=== PATIENT | male | born 1940 | race Caucasian/White ===

== ENCOUNTER → 2016-09-11 | Outpatient (CLI) | payer OTHER ==
[~2016-09-11] MED LIST: ASPI81CH43 OR; LEVO25TA6 PO; METO25TA5 PO; SIMV-13 PO
[2016-09-11 08:06] LABS: Basophils # (auto) 0 uL; Basophils % (auto) 0.8 % (0.0-2.0); Eosinophils # (auto) 0.4 uL; Eosinophils % (auto) 6.8 % (0.0-7.0); Hematocrit 47.8 % (41.0-53.0); Lymphocytes % (auto) 31.3 % (10.0-50.0); Mean Corpuscular Hemoglobin 31.6 pg (28.0-32.0); Mean Corpuscular Hgb Conc. 33.5 g/dL (32.0-36.0); Mean Corpuscular Volume 94.3 fL (80.0-100.0); Mean Platelet Volume 7.8 fL (7.4-10.4); Monocytes # (auto) 0.7 uL; Monocytes % (auto) 11.2 % (0.0-12.0); Neutrophils # (auto) 3.1 uL; Neutrophils % (auto) 49.9 % (37.0-80.0); Platelet Count (auto) 195 10^3/uL (140-450); Red Cell Distribution Width 14.4 % (11.6-16.0); White Blood Cell 6.3 10^3/uL (4.4-10.8)
[2016-09-11 08:38] LABS: Albumin 3.8 g/dL (3.4-5.0); BUN/Creatinine Ratio 17.4; Bilirubin, Total 0.8 mg/dL (0.2-1.0); Calcium 9.2 mg/dL (8.5-10.1); Potassium 4.8 mmol/L (3.5-5.1); Total Protein 7.8 g/dL (6.4-8.2)
== END | disposition home or self-care (01) ==
LOC: LAB 07:33
PROVIDERS: ATTEND Internal Medicine
DX: I25.10 Atherosclerotic heart disease of native coronary artery without angina pectoris (principal); E03.9 Hypothyroidism, unspecified; E78.4 Other hyperlipidemia; Z12.5 Encounter for screening for malignant neoplasm of prostate
CPT/HCPCS: 36415; 80053; 80061; 82270; 82306; 84153; 84443; 85025

== ENCOUNTER → 2016-09-17 | Outpatient (CLI) | payer OTHER | END | disposition home or self-care (01) | LOC: LAB 10:55 | PROVIDERS: ATTEND Internal Medicine | DX: E03.9 Hypothyroidism, unspecified (principal) | CPT/HCPCS: 36415; 84439; 84443 ==

== ENCOUNTER → 2017-06-02 | Outpatient (CLI) | payer OTHER ==
[2017-06-02 15:47] LABS: Basophils # (auto) 0 uL; Basophils % (auto) 0.4 % (0.0-2.0); Eosinophils # (auto) 0.6 uL; Eosinophils % (auto) 8.1 % (0.0-7.0); Hematocrit 49.9 % (41.0-53.0); Hemoglobin 17.2 g/dL (13.5-17.5); Lymphocytes # (auto) 2.2 uL; Lymphocytes % (auto) 28.3 % (10.0-50.0); Mean Corpuscular Hemoglobin 32.8 pg (28.0-32.0); Mean Corpuscular Hgb Conc. 34.5 g/dL (32.0-36.0); Mean Corpuscular Volume 95.2 fL (80.0-100.0); Mean Platelet Volume 7.2 fL (6.9-10.8); Monocytes # (auto) 0.8 uL; Neutrophils # (auto) 4.1 uL; Neutrophils % (auto) 53.2 % (37.0-80.0); Platelet Count (auto) 186 10^3/uL (140-450); Red Cell Distribution Width 13.7 % (11.8-14.3); White Blood Cell 7.7 10^3/uL (4.4-10.8)
[2017-06-02 16:07] LABS: INR 0.98 (0.9-1.15); Partial Thromboplastin Time 29.5 sec (22.64-33.71); Prothrombin Time 10.7 sec (9.37-12.3)
[2017-06-02 16:11] LABS: Urine Bilirubin Negative (Negative); Urine Blood Negative /uL (Negative); Urine Color Yellow (Yellow); Urine Glucose Normal (Normal); Urine Ketone Negative (Negative); Urine Nitrite Negative (Negative); Urine Urobilinogen Normal (Negative)
[2017-06-02 16:24] LABS: Albumin 4.2 g/dL (3.4-5.0); Bilirubin, Total 0.6 mg/dL (0.2-1.0); Calcium 9.4 mg/dL (8.5-10.1); Potassium 4.8 mmol/L (3.5-5.1); Total Protein 8.4 g/dL (6.4-8.2)
== END | disposition home or self-care (01) ==
LOC: LAB 15:29
PROVIDERS: ATTEND Specialist
DX: Z01.810 Encounter for preprocedural cardiovascular examination (principal)
CPT/HCPCS: 36415; 80053; 81003; 85025; 85610; 85730

== ENCOUNTER → 2017-08-06 | Outpatient (CLI) | payer OTHER ==
[2017-08-06 15:12] LABS: INR 0.98 (0.9-1.15); Prothrombin Time 10.7 sec (9.37-12.3)
[2017-08-06 15:18] LABS: Urine Blood Negative /uL (Negative); Urine Specific Gravity 1.018 (1.001-1.035)
[2017-08-06 15:19] LABS: Basophils # (auto) 0.1 uL; Basophils % (auto) 1.3 % (0.0-2.0); Eosinophils # (auto) 0.5 uL; Eosinophils % (auto) 7.8 % (0.0-7.0); Hematocrit 48.7 % (41.0-53.0); Hemoglobin 16.3 g/dL (13.5-17.5); Lymphocytes # (auto) 2.2 uL; Lymphocytes % (auto) 31.6 % (10.0-50.0); Mean Corpuscular Hgb Conc. 33.4 g/dL (32.0-36.0); Mean Corpuscular Volume 95.8 fL (80.0-100.0); Monocytes # (auto) 0.7 uL; Monocytes % (auto) 10.7 % (0.0-12.0); Neutrophils # (auto) 3.4 uL; Neutrophils % (auto) 48.6 % (37.0-80.0); Nucleated Red Blood Cells % 0.2 %; Platelet Count (auto) 202 10^3/uL (140-450); Red Blood Cells 5.09 10^6/uL (4.5-5.90); Red Cell Distribution Width 14.4 % (11.8-14.3)
[2017-08-06 15:49] LABS: Albumin 3.9 g/dL (3.4-5.0); BUN/Creatinine Ratio 16.7; Calcium 9.4 mg/dL (8.5-10.1); Potassium 4.5 mmol/L (3.5-5.1)
[2017-08-06 15:53] LABS: Bilirubin, Total 0.7 mg/dL (0.2-1.0); Total Protein 7.7 g/dL (6.4-8.2)
== END | disposition home or self-care (01) ==
LOC: LAB 14:17
PROVIDERS: ATTEND Specialist
DX: Z01.812 Encounter for preprocedural laboratory examination (principal); D68.311 Acquired hemophilia; H25.11 Age-related nuclear cataract, right eye; Z79.01 Long term (current) use of anticoagulants
CPT/HCPCS: 36415; 80053; 81003; 85025; 85610; 85730

== ENCOUNTER → 2017-10-27 | Outpatient (CLI) | payer OTHER ==
[2017-10-27 08:21] LABS: Basophils # (auto) 0 uL; Basophils % (auto) 0.8 % (0.0-2.0); Eosinophils # (auto) 0.4 uL; Eosinophils % (auto) 6.8 % (0.0-7.0); Hematocrit 46.5 % (41.0-53.0); Hemoglobin 15.9 g/dL (13.5-17.5); Lymphocytes # (auto) 1.7 uL; Lymphocytes % (auto) 29.8 % (10.0-50.0); Mean Corpuscular Hemoglobin 32.3 pg (28.0-32.0); Mean Corpuscular Hgb Conc. 34.3 g/dL (32.0-36.0); Mean Corpuscular Volume 94.2 fL (80.0-100.0); Monocytes # (auto) 0.6 uL; Monocytes % (auto) 10.4 % (0.0-12.0); Neutrophils % (auto) 52.2 % (37.0-80.0); Platelet Count (auto) 174 10^3/uL (140-450); Red Blood Cells 4.94 10^6/uL (4.5-5.90); Red Cell Distribution Width 13.9 % (11.8-14.3); White Blood Cell 5.8 10^3/uL (4.4-10.8)
[2017-10-27 09:20] LABS: Albumin 3.7 g/dL (3.4-5.0); BUN/Creatinine Ratio 14.6; Bilirubin, Total 0.6 mg/dL (0.2-1.0); Calcium 9.1 mg/dL (8.5-10.1); Potassium 4.8 mmol/L (3.5-5.1); Total Protein 7.5 g/dL (6.4-8.2)
== END | disposition home or self-care (01) ==
LOC: LAB 07:46
PROVIDERS: ATTEND Internal Medicine
DX: Z12.5 Encounter for screening for malignant neoplasm of prostate (principal); I10 Essential (primary) hypertension; I25.10 Atherosclerotic heart disease of native coronary artery without angina pectoris; E78.5 Hyperlipidemia, unspecified; Z79.01 Long term (current) use of anticoagulants
CPT/HCPCS: 36415; 80053; 80061; 82270; 82306; 84153; 84443; 85025

== ENCOUNTER → 2017-11-04 | Outpatient (CLI) | payer OTHER | END | disposition home or self-care (01) | LOC: LAB 10:06 | PROVIDERS: ATTEND Internal Medicine | DX: E03.9 Hypothyroidism, unspecified (principal); E78.5 Hyperlipidemia, unspecified; I10 Essential (primary) hypertension; Z79.01 Long term (current) use of anticoagulants | CPT/HCPCS: 36415; 84439; 84443 ==

== ENCOUNTER → 2018-03-31 | Outpatient (CLI) | payer OTHER ==
[2018-03-31 09:32] LABS: Basophils # (auto) 0.1 uL; Basophils % (auto) 1.2 % (0.0-2.0); Eosinophils # (auto) 0.5 uL; Eosinophils % (auto) 6.9 % (0.0-7.0); Hematocrit 49.7 % (41.0-53.0); Lymphocytes # (auto) 1.6 uL; Lymphocytes % (auto) 24.8 % (10.0-50.0); Mean Corpuscular Hemoglobin 32.4 pg (28.0-32.0); Mean Corpuscular Hgb Conc. 34.2 g/dL (32.0-36.0); Mean Corpuscular Volume 94.7 fL (80.0-100.0); Monocytes # (auto) 0.7 uL; Monocytes % (auto) 10.7 % (0.0-12.0); Neutrophils # (auto) 3.7 uL; Neutrophils % (auto) 56.4 % (37.0-80.0); Nucleated Red Blood Cells % 0.2 %; Platelet Count (auto) 180 10^3/uL (140-450); Red Blood Cells 5.24 10^6/uL (4.5-5.90); Red Cell Distribution Width 13.9 % (11.8-14.3); White Blood Cell 6.6 10^3/uL (4.4-10.8)
[2018-03-31 10:37] LABS: BUN/Creatinine Ratio 18.6; Bilirubin, Total 0.8 mg/dL (0.2-1.0); Calcium 9.1 mg/dL (8.5-10.1); Potassium 4.9 mmol/L (3.5-5.1)
== END | disposition home or self-care (01) ==
LOC: LAB 08:27
PROVIDERS: ATTEND Internal Medicine
DX: Z12.11 Encounter for screening for malignant neoplasm of colon (principal); Z12.5 Encounter for screening for malignant neoplasm of prostate; I10 Essential (primary) hypertension; E78.6 Lipoprotein deficiency
CPT/HCPCS: 36415; 80053; 80061; 82274; 82306; 84153; 84443; 85025

== ENCOUNTER → 2018-04-08 | Outpatient (CLI) | payer OTHER ==
[2018-04-08 13:08] LABS: Free T3 3.18 pg/mL (2.3-4.2); Free T4 (Free Thyroxine) 1.11 ng/dL (0.89-1.76)
== END | disposition home or self-care (01) ==
LOC: LAB 10:17
PROVIDERS: ATTEND Internal Medicine
DX: E03.9 Hypothyroidism, unspecified (principal)
CPT/HCPCS: 84439; 84481

== ENCOUNTER → 2018-10-27 | Outpatient (CLI) | payer OTHER ==
[2018-10-27 09:34] LABS: Albumin 3.7 g/dL (3.4-5.0); Calcium 9.5 mg/dL (8.5-10.1); Potassium 4.5 mmol/L (3.5-5.1)
[2018-10-27 09:41] LABS: BUN/Creatinine Ratio 22.1; Bilirubin, Total 0.8 mg/dL (0.2-1.0); Total Protein 7.1 g/dL (6.4-8.2)
== END | disposition home or self-care (01) ==
LOC: LAB 08:12
PROVIDERS: ATTEND Internal Medicine
DX: I12.9 Hypertensive chronic kidney disease with stage 1 through stage 4 chronic kidney disease, or unspecified chronic kidney disease (principal); N18.2 Chronic kidney disease, stage 2 (mild)
CPT/HCPCS: 36415; 80053; 80061

== ENCOUNTER → 2019-02-25 | Outpatient (CLI) | payer OTHER ==
[2019-02-25 08:13] LABS: Albumin 3.7 g/dL (3.4-5.0); Potassium 4.2 mmol/L (3.5-5.1)
[2019-02-25 08:19] LABS: BUN/Creatinine Ratio 20.6; Total Protein 7.3 g/dL (6.4-8.2)
== END | disposition home or self-care (01) ==
LOC: LAB 07:11
PROVIDERS: ATTEND Internal Medicine
DX: E78.5 Hyperlipidemia, unspecified (principal); I10 Essential (primary) hypertension
CPT/HCPCS: 36415; 80053; 80061

== ENCOUNTER → 2019-04-12 | Outpatient (CLI) | payer OTHER | END | disposition home or self-care (01) | LOC: LAB 09:32 | PROVIDERS: ATTEND Internal Medicine | DX: Z01.812 Encounter for preprocedural laboratory examination (principal) | CPT/HCPCS: 36415; 82565; 84520 ==

== ENCOUNTER → 2019-08-26 | Outpatient (CLI) | payer OTHER ==
[2019-08-26 11:58] LABS: Urine Blood Negative /uL (Negative); Urine Specific Gravity 1.012 (1.001-1.035)
[2019-08-26 12:02] LABS: Basophils # (auto) 0.1 uL; Basophils % (auto) 1.4 % (0.0-2.0); Eosinophils # (auto) 0.4 uL; Eosinophils % (auto) 5.7 % (0.0-7.0); Hematocrit 49.4 % (41.0-53.0); Hemoglobin 16.8 g/dL (13.5-17.5); Lymphocytes # (auto) 1.6 uL; Lymphocytes % (auto) 23.5 % (10.0-50.0); Mean Corpuscular Hemoglobin 32.5 pg (28.0-32.0); Mean Corpuscular Hgb Conc. 34.1 g/dL (32.0-36.0); Mean Corpuscular Volume 95.5 fL (80.0-100.0); Monocytes # (auto) 0.7 uL; Monocytes % (auto) 10.5 % (0.0-12.0); Neutrophils # (auto) 4.1 uL; Neutrophils % (auto) 58.9 % (37.0-80.0); Nucleated Red Blood Cells % 0.2 %; Platelet Count (auto) 179 10^3/uL (140-450); Red Blood Cells 5.17 10^6/uL (4.5-5.90); Red Cell Distribution Width 14.2 % (11.8-14.3)
[2019-08-26 12:19] LABS: Calcium 9.6 mg/dL (8.5-10.1)
[2019-08-26 12:25] LABS: INR 1.04 (0.9-1.15); Partial Thromboplastin Time 29.1 sec (23.64-32.05)
== END | disposition home or self-care (01) ==
LOC: Rad HDHVI 10:40
PROVIDERS: ATTEND Internal Medicine Cardiovascular Disease
DX: Z01.810 Encounter for preprocedural cardiovascular examination (principal)
CPT/HCPCS: 36415; 80048; 81003; 85025; 85610; 85730

== ENCOUNTER 2019-09-01 06:50 | Inpatient (IN) | payer OTHER ==
[~2019-09-01] VITALS: Ht 182.9 cm; Wt 86.6 kg
[~2019-09-01 06:50] MED LIST changes: -ASPI81CH43 OR; +ASPI81CH43 PO; +LATA0.0019 EACHEYE; -LEVO25TA6 PO; +LEVO50TA7 PO; +SIMV80TA73 PO; +TIMO0.5S66 EACHEYE
[2019-09-01] MEDS ORDERED: IOHEXOL 350 MG/ML 100ML IJ ONE (07:47)
[2019-09-01] MEDS ORDERED: LIDOCAINE 2%HCL (LOCAL ANESTH.) INJ 20ML MDV ONE ×2 (07:47→09:27)
[2019-09-01] MEDS ORDERED: ATROPINE SULF 1 MG/10ml SYR ONE (09:20)
[2019-09-01] MEDS ORDERED: fentaNYL CITRATE 100 MCG/2 ML VL ONE (09:20)
[2019-09-01] MEDS ORDERED: ANGIOMAX 250 MG VIAL IV ONE ×2 (09:20→10:23)
[2019-09-01] MEDS ORDERED: PHENYLEPHRINE HCL 10 MG/ML VL ONE (09:20)
[2019-09-01] MEDS ORDERED: MIDAZOLAM HCL 1MG/1ML-2 ML VIAL ONE ×2 (09:21→09:37)
[2019-09-01] MEDS ORDERED: EPINEPHrine HCL 1 MG/10 ML SYRG ONE (09:21)
[2019-09-01] MEDS ORDERED: DOPamine 1600MCG/ML D5W 0 ML IV ONE (09:21)
[2019-09-01] MEDS ORDERED: SODIUM CHL 0.9% 0 ML ONE (09:21)
[2019-09-01] MEDS ORDERED: SODIUM CHL 0.9% 50 ML ONE (10:23)
[2019-09-01] MEDS ORDERED: ASPirin 81 mg TAB ONE (10:34)
[2019-09-01] MEDS ORDERED: NITROGLYCERIN 0.4 MG SL TAB SL PRN (11:00)
[2019-09-01] MEDS ORDERED: HYDROcodone-ACET 5/325MG TAB PO PRN (11:00)
[2019-09-01] MEDS ORDERED: ONDANSETRON HCL 4 MG/2 ML VIAL IV PRN (11:00)
[2019-09-01] MEDS ORDERED: MORPHINE SULF INJ 2 MG/ML SYRINGE 1ML IV PRN (11:00)
[2019-09-01] MEDS ORDERED: ACETAMINOPHEN 500 MG TAB PO PRN (11:00)
--- NOTE | 2019-09-01 12:00 | NUR ---
Report received from Susana. JOÃO OLEARY brought to bed 218A following repair of AAA, on night monitor and portable oxygen. Patient transfered to unit bed, connected to nurse monitoring #40 running sinus bradycardia. Catheterization site assessed for any bleeding, redness or swelling. Safegaurd device in place. Pedal pulses on affected leg assessed for positive tissue perfusion. Patient instructed on need to notify staff immediately if any pain, burning or wetness to site, and any lower back pain. Patient aware he is to stay flat until 1500. All questions and concerns addressed, patient verbalized understanding of all education and instruction. Will continue to monitor.
[2019-09-01 13:00] VITALS: BP 145/87
[2019-09-01] MEDS ORDERED: CHOL100079 OR (14:09)
[2019-09-01] MEDS ORDERED: MULT1CHW52 PO (14:09)
[2019-09-01] MEDS ORDERED: LORA-622 PO (14:09)
[2019-09-01] MEDS: SODIUM CHLOR 0.9% PF (SALINE LOCK) 10ML VIAL/SYR IV SCH ×2 (15:11→21:12)
[2019-09-01 17:00] VITALS: BP 133/85
[2019-09-01] MEDS ORDERED: METOPROLOL TARTRATE 25 MG TAB PO SCH (18:00)
--- NOTE | 2019-09-01 19:45 | NUR ---
assumed care, pt. awake, no c/o pain, dressing on rt. groin with old blood, to keep monitor, no sob.
[2019-09-01 22:00] VITALS: BP 121/74
[2019-09-01] MEDS ORDERED: ATORVASTATIN 20 MG TAB PO SCH (22:00)
[2019-09-01] MEDS ORDERED: LATANOPROST 0.005 % OPTH(EYE) SOL 2.5ML EACHEYE SCH (22:00)
[2019-09-02 05:00] VITALS: BP 107/59
[2019-09-02] MEDS: SODIUM CHLOR 0.9% PF (SALINE LOCK) 10ML VIAL/SYR IV SCH (06:02)
[2019-09-02] MEDS ORDERED: LEVOTHYROXINE SODIUM 50 MCG TAB PO SCH (07:00)
[2019-09-02 09:00] VITALS: BP 120/75
[2019-09-02] MEDS ORDERED: TIMOLOL MAL 0.5% OPTH(EYE) SOL 5ML EACHEYE SCH (10:00)
[2019-09-02] MEDS ORDERED: ASPirin 81 mg TAB PO SCH (10:00)
[2019-09-02 13:16] VITALS: BP 149/93
[2019-09-02] MEDS ORDERED: ATORVASTATIN 20 MG TAB PO SCH (22:00)
== END 2019-09-02 13:50 | disposition home or self-care (01) | DRG 269 ==
LOC: CATH 06:50 → TELE-CENTR 12:09
PROVIDERS: ADMIT Internal Medicine Cardiovascular Disease; ATTEND Internal Medicine Cardiovascular Disease
PROC: 04V03DZ Restriction of Abdominal Aorta with Intraluminal Device, Percutaneous Approach (ICD-10-PCS; principal; 2019-09-01)
PROC: B4101ZZ Fluoroscopy of Abdominal Aorta using Low Osmolar Contrast (ICD-10-PCS; 2019-09-01)
DX: I71.4 Abdominal aortic aneurysm, without rupture (principal); I10 Essential (primary) hypertension
CPT/HCPCS: 75625; 86850; 86900; 86901; 86920; 99152; 99153; C1769; G0378; J2250

== ENCOUNTER → 2019-12-12 | Outpatient (CLI) | payer OTHER ==
[~2019-12-12] MED LIST changes: +CHOL100079 OR; +LORA-622 PO; +MULT1CHW52 PO
== END | disposition home or self-care (01) ==
LOC: LAB 09:52
PROVIDERS: ATTEND Internal Medicine Cardiovascular Disease
DX: R94.4 Abnormal results of kidney function studies (principal)
CPT/HCPCS: 36415; 82565

== ENCOUNTER → 2019-12-14 | Outpatient (CLI) | payer OTHER ==
[~2019-12-14] MED LIST changes: +IOHEXOL 350 MG/ML 100ML IJ ONE
[2019-12-14 08:48] VITALS: BP 161/91
--- NOTE | 2019-12-14 08:48 | NUR ---
CHF PT ARRIVED TO THE CHF CLINIC FOR CTA ABD/PEL. HX AAA AORTIC STENTING AUGUST 2019. A/OX4, AMBULATORY.
--- NOTE | 2019-12-14 08:52 | NUR ---
IV insertion IV access obtained, via clean sterile technique by inserting 20 gauge catheter at LAC after 2 attempt(s). IV secured properly. No trauma to site. Patient tolerated procedure well. NOTE I UNSUCCESSFUL ATTEMPT BY NORMA PATTERSON INSERTED BY LYNDON PATTERSON
--- NOTE | 2019-12-14 09:39 | NUR ---
IV removal IV DC'd with sterile technique, catheter fully intact. Pressure dressing applied to site. Patient tolerated procedure well. Discharged with aftercare instructions per MD. NOTE: REMOVED BY NORMA PATTERSON
[2019-12-14 09:41] VITALS: BP 156/78
--- NOTE | 2019-12-14 09:41 | NUR ---
Discharge Instructions See e-MAR for any mediations given with this visit. Patient education given on disease process. Patient verbalized understanding. Previous labs reviewed. Patient discharged in stable condition with after care instructions. PT ADVISED TO INCREASE FLUID INTAKE FOR THE NEXT 24HRS. PT VERBALIZED UNDERSTANDING.
== END | disposition home or self-care (01) ==
LOC: Rad HDHVI 08:39
PROVIDERS: ATTEND Internal Medicine Cardiovascular Disease
DX: K57.30 Diverticulosis of large intestine without perforation or abscess without bleeding (principal); R94.4 Abnormal results of kidney function studies; I71.4 Abdominal aortic aneurysm, without rupture
CPT/HCPCS: 74175; G0463; Q9967

== ENCOUNTER 2020-01-07 13:14 | Emergency (ER) | payer OTHER ==
[~2020-01-07] VITALS: Ht 182.9 cm; Wt 83.5 kg
[~2020-01-07 13:14] MED LIST changes: -IOHEXOL 350 MG/ML 100ML IJ ONE
[2020-01-07 14:14] LABS: Basophils # (auto) 0.1 10 ^3/uL (0-0.2); Basophils % (auto) 1.8 % (0.0-2.0); Eosinophils # (auto) 0.4 10 ^3/uL (0-0.8); Hematocrit 45.9 % (41.0-53.0); Hemoglobin 15.5 g/dL (13.5-17.5); Lymphocytes # (auto) 1.5 10 ^3/uL (0.4-5.4); Lymphocytes % (auto) 22.8 % (10.0-50.0); Mean Corpuscular Hemoglobin 31.6 pg (28.0-32.0); Mean Corpuscular Hgb Conc. 33.8 g/dL (32.0-36.0); Mean Corpuscular Volume 93.3 fL (80.0-100.0); Monocytes # (auto) 0.6 10 ^3/uL (0-1.3); Monocytes % (auto) 9.1 % (0.0-12.0); Neutrophils % (auto) 60.3 % (37.0-80.0); Nucleated Red Blood Cells % 0.2 %; Platelet Count (auto) 161 10^3/uL (140-450); Red Blood Cells 4.92 10^6/uL (4.5-5.90); Red Cell Distribution Width 14.1 % (11.8-14.3); White Blood Cell 6.6 10^3/uL (4.4-10.8)
[2020-01-07 14:33] LABS: Calcium 9.1 mg/dL (8.5-10.1); Chloride 107 mmol/L (98-107); Potassium 4.8 mmol/L (3.5-5.1); Sodium 139 mmol/L (136-145)
[2020-01-07 14:43] LABS: Alanine Aminotransferase 27 U/L (16-61); Albumin 3.7 g/dL (3.4-5.0); Alkaline Phosphatase 56 U/L (45-117); Anion Gap 6 (5-15); Aspartate Aminotransferase 17 U/L (15-37); BUN/Creatinine Ratio 11.8; Bilirubin, Total 0.5 mg/dL (0.2-1.0); Blood Urea Nitrogen 13 mg/dL (7-18); Carbon Dioxide 26 mmol/L (21-32); GFR African American 83 mL/min; GFR Non-African American 68 mL/min; Glucose 135 mg/dL (74-106); Total Protein 7.4 g/dL (6.4-8.2)
[2020-01-07] MEDS ORDERED: ASPirin 81 mg TAB PO ONE (16:00)
[2020-01-07 16:13] VITALS: BP 166/92
== END 2020-01-07 16:21 | disposition home or self-care (01) ==
LOC: ER 13:14
DX: G45.8 Other transient cerebral ischemic attacks and related syndromes (principal); F41.9 Anxiety disorder, unspecified; I10 Essential (primary) hypertension; Z95.1 Presence of aortocoronary bypass graft
CPT/HCPCS: 36415; 70450; 80053; 84484; 85025

== ENCOUNTER → 2020-03-12 | Outpatient (CLI) | payer OTHER | END | disposition home or self-care (01) | LOC: Rad HDHVI 07:57 | PROVIDERS: ATTEND Internal Medicine Cardiovascular Disease | DX: I25.5 Ischemic cardiomyopathy (principal); R00.2 Palpitations; R07.89 Other chest pain | CPT/HCPCS: 93306 ==

== ENCOUNTER → 2020-03-22 | Outpatient (CLI) | payer OTHER ==
[~2020-03-22] VITALS: Ht 182.9 cm; Wt 82.6 kg
== END | disposition home or self-care (01) ==
LOC: Rad HDHVI 07:57
PROVIDERS: ATTEND Internal Medicine Cardiovascular Disease
DX: I50.43 Acute on chronic combined systolic (congestive) and diastolic (congestive) heart failure (principal); I25.10 Atherosclerotic heart disease of native coronary artery without angina pectoris; I10 Essential (primary) hypertension; E78.00 Pure hypercholesterolemia, unspecified; I25.5 Ischemic cardiomyopathy; I63.9 Cerebral infarction, unspecified; G45.9 Transient cerebral ischemic attack, unspecified; R06.02 Shortness of breath; R07.89 Other chest pain; R00.2 Palpitations; Z95.1 Presence of aortocoronary bypass graft
CPT/HCPCS: 78452; 93017; 96374; A9500

== ENCOUNTER → 2020-04-13 | Outpatient (CLI) | payer OTHER ==
[~2020-04-13] MED LIST changes: +ASPI81CH59 PO; +CHOL1000 PO; +CLOP75TA41 PO; +LISI-648 PO; +MULT-928 PO
[2020-04-13 09:48] VITALS: BP 120/52
--- NOTE | 2020-04-13 09:48 | NUR ---
CLINIC PT ARRIVED TO THE CHF CLINIC FOR PRE OP LABS, EKG, CXR FOR CAROTID ANGIO. A/OX4, AMBULATORY, BREATHING IS EVEN AND UNLABORED.
--- NOTE | 2020-04-13 09:55 | NUR ---
EKG DONE BY DIANNE WHITMAN SB 57 WITH OLD INFERIOR INFARCT
[2020-04-13 10:04] VITALS: BP 122/64
--- NOTE | 2020-04-13 10:04 | NUR ---
Pre-Op Discharge Summary: See e-MAR for any medications given for this visit. Pre-op orders received and carried out per MD of EKG, LABS and chest xrays. Patient given a copy of EKG with instructions to go to [facility] out patient for further follow up care. NOTE EKG DONE BY DIANNE WHITMAN REVIEWED BY NORMA PATTERSON
[2020-04-13 11:59] LABS: Basophils # (auto) 0.1 10 ^3/uL (0-0.2); Basophils % (auto) 1.4 % (0.0-2.0); Eosinophils # (auto) 0.6 10 ^3/uL (0-0.8); Eosinophils % (auto) 7.8 % (0.0-7.0); Hematocrit 45.9 % (41.0-53.0); Hemoglobin 15.4 g/dL (13.5-17.5); Lymphocytes # (auto) 1.5 10 ^3/uL (0.4-5.4); Lymphocytes % (auto) 20.3 % (10.0-50.0); Mean Corpuscular Hgb Conc. 33.5 g/dL (32.0-36.0); Mean Corpuscular Volume 95.5 fL (80.0-100.0); Monocytes # (auto) 0.7 10 ^3/uL (0-1.3); Monocytes % (auto) 10.3 % (0.0-12.0); Neutrophils # (auto) 4.4 10 ^3/uL (1.6-8.6); Neutrophils % (auto) 60.2 % (37.0-80.0); Nucleated Red Blood Cells % 0.1 %; Platelet Count (auto) 176 10^3/uL (140-450); Red Blood Cells 4.81 10^6/uL (4.5-5.90); Red Cell Distribution Width 14.5 % (11.8-14.3); White Blood Cell 7.3 10^3/uL (4.4-10.8)
[2020-04-13 12:12] LABS: BUN/Creatinine Ratio 13.3; Potassium 4.1 mmol/L (3.5-5.1)
[2020-04-13 12:13] LABS: INR 1.02 (0.9-1.15); Partial Thromboplastin Time 29.1 sec (23.0-31.2)
== END | disposition home or self-care (01) ==
LOC: Rad HDHVI 09:33
PROVIDERS: ATTEND Internal Medicine Cardiovascular Disease
DX: Z01.812 Encounter for preprocedural laboratory examination (principal); I10 Essential (primary) hypertension; Z01.818 Encounter for other preprocedural examination; G45.9 Transient cerebral ischemic attack, unspecified; I63.9 Cerebral infarction, unspecified
CPT/HCPCS: 36415; 71046; 80048; 85025; 85610; 85730; 93005; G0463

== ENCOUNTER 2020-04-19 07:01 | Inpatient (IN) | payer OTHER ==
[~2020-04-19] VITALS: Ht 182.9 cm; Wt 84.2 kg
[~2020-04-19 07:01] MED LIST changes: -ASPI81CH43 PO; -CHOL100079 OR; -MULT1CHW52 PO; -SIMV80TA73 PO
[2020-04-19] MEDS ORDERED: LIDOCAINE 2%HCL (LOCAL ANESTH.) INJ 20ML MDV ONE (07:50)
[2020-04-19] MEDS ORDERED: IOHEXOL 350 MG/ML 100ML IJ ONE ×3 (07:50→10:33)
[2020-04-19] MEDS ORDERED: PHENYLEPHRINE HCL 10 MG/ML VL ONE (08:55)
[2020-04-19] MEDS ORDERED: GLYCOPYRROLATE 0.2 MG/ML 1ML VIAL ONE ×2 (08:55→11:01)
[2020-04-19] MEDS ORDERED: ANGIOMAX 250 MG VIAL IV ONE (09:55)
[2020-04-19] MEDS ORDERED: SODIUM CHL 0.9% 50 ML ONE (09:55)
[2020-04-19] MEDS ORDERED: CLOPIDOGREL 300 MG TAB ONE (11:16)
[2020-04-19] MEDS ORDERED: ASPirin 81 mg TAB ONE (11:16)
[2020-04-19] MEDS ORDERED: ONDANSETRON HCL 4 MG/2 ML VIAL IV PRN (12:15)
[2020-04-19] MEDS ORDERED: ACETAMINOPHEN 500 MG TAB PO PRN (12:15)
[2020-04-19] MEDS ORDERED: HYDROcodone-ACET 5/325MG TAB PO PRN (12:15)
[2020-04-19] MEDS ORDERED: NITROGLYCERIN 0.4 MG SL TAB SL PRN (12:15)
[2020-04-19] MEDS ORDERED: MORPHINE SULF INJ 2 MG/ML SYRINGE 1ML IV PRN (12:15)
[2020-04-19] MEDS: ATORVASTATIN 20 MG TAB PO SCH (14:28)
[2020-04-19] MEDS ORDERED: SODIUM CHLORIDE 0.9% 1,000 ML IV ONE (16:00)
[2020-04-19] MEDS: ASPirin 81 mg TAB PO SCH (16:27)
--- NOTE | 2020-04-19 16:50 | NUR ---
Report received from Lisha PATTERSON. JOÃO OLEARY brought to bed 273B following right and left carotid angiography, angioplasty with stent placement in the right internal carotid artery, on quality assurance monitor final and portable oxygen. Patient transfered to unit bed, connected to monitoring and evaluation advisor #[phone] SB and oxygen at 2L/NC. Catheterization site assessed for any bleeding, redness or swelling. Angioseal to right groin. Pedal pulses on affected leg assessed for positive tissue perfusion. Patient instructed on need to notify staff immediately if any pain, burning or wetness to site, and any lower back pain. Patient educated on new cardiac medications. All questions and concerns addressed, patient verbalized understanding of all education and instruction. See notes for any further. NOTE: Patient noted to be aaox4, pleasant and cooperative, voiced no c/o pain and patient was in no distress. Patient BP 89/[address] Morris aware of patient's low BP and HR as per report from Lisha PATTERSON. Admission assessment done and charted. Patient orientated to staff, unit and routine. Will continue to monitor patient.
[2020-04-19 17:00] VITALS: BP 89/50
[2020-04-19] MEDS ORDERED: SIMV-13 PO (17:40)
[2020-04-19] MEDS: METOPROLOL TARTRATE 25 MG TAB PO SCH (18:00)
[2020-04-19 19:21] VITALS: BP 85/47
--- NOTE | 2020-04-19 19:21 | NUR ---
Opening Shift Note Assumed care of patient, awake and alert. Patient is running NS at 100ml per RN karine evans order and md evans is aware of low blood pressure and heart rate. No S/S of distress/SOB or pain. dressing to right groin is clean dry and intact.Instructed on POC and to call for assist PRN, will continue to monitor for changes Q1hr and PRN. bed in low position and call light within reach. fall precautions in place.
[2020-04-19 20:00] VITALS: BP 89/50
[2020-04-19 21:32] VITALS: BP 82/53
--- NOTE | 2020-04-19 21:32 | NUR ---
Left a message to Yary khoury for MD evans. for low blood pressure 82/49 and clarification of orders. awaiting call back.
[2020-04-19] MEDS: TIMOLOL MAL 0.5% OPTH(EYE) SOL 5ML EACHEYE SCH (22:00)
[2020-04-19] MEDS: LATANOPROST 0.005 % OPTH(EYE) SOL 2.5ML EACHEYE SCH (22:27)
--- NOTE | 2020-04-19 22:27 | NUR ---
patient had 400 ml of light kimberly urine output. dressing is clean dry and intact. bilateral pedal pulses, capillary refill less than 3sec, skin is warm to touch, no change in skin color,
--- NOTE | 2020-04-19 22:27 | NUR ---
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
[2020-04-19 22:38] VITALS: BP 82/49
[2020-04-19 22:48] VITALS: BP 95/50
--- NOTE | 2020-04-20 01:16 | NUR ---
left message to MD evans air surveillance operator Yeimy, as patient blood pressure continues to be low 85/47 heart rate 49. patient is asymptomatic. denies sob distress or pain.
--- NOTE | 2020-04-20 02:00 | NUR ---
Notification MD evans not calling back.enterprise data architect was made aware. patient is asymptomatic and denies sob distress or pain
[2020-04-20 05:00] VITALS: BP 105/43
[2020-04-20] MEDS: CHOLECALCIFEROL (VITD3) 1,000UNIT=25mCg TAB PO SCH (06:25)
[2020-04-20] MEDS: MULTIPLE VITAMINS W/ MINERALS TAB PO SCH (06:25)
[2020-04-20] MEDS: LEVOTHYROXINE SODIUM 50 MCG TAB PO SCH (06:25)
[2020-04-20] MEDS: CLOPIDOGREL BISULFATE 75 MG TAB PO SCH (06:26)
--- NOTE | 2020-04-20 06:30 | NUR ---
PATIENT RESTING IN BED DENIES SOB DISTRESS OR PAIN. DRESSING TO RIGHT GROIN IS CLEAN DRY AND INTACT. BILATERAL PEDAL PULSES, CAPILLARY REFILL LESS THAN 3 SEC, SKIN WARM TO TOUCH, NO CHANGE IN COLOR OF SKIN. FALL PRECAUTIONS IN PLACE
[2020-04-20] MEDS ORDERED: LISINOPRIL 10 MG TAB PO SCH (07:00)
--- NOTE | 2020-04-20 07:19 | NUR ---
REPORT GIVEN TO DAYSHIFT RN. PATIENT IS AWAKE AND ALERT DENIES SOB DISTRESS OR PAIN.PATIENT IS ASYMPTOMATIC. IV IS INTACT AND PATENT. DRESSING TO RIGHT GROIN IS CLEAN DRY AND INTACT. INFORMED RN TO NOTIFY MD DENTON OF PATIENT BLOOD PRESSURE AND MEDICATION TIMOPTIC AVAILABLE DOSE 0.25%
[2020-04-20 09:00] VITALS: BP 91/44
[2020-04-20] MEDS: TIMOLOL MAL 0.5% OPTH(EYE) SOL 5ML EACHEYE SCH ×2 (09:59→21:54)
[2020-04-20] MEDS ORDERED: ATORVASTATIN 20 MG TAB PO SCH (10:00)
[2020-04-20] MEDS ORDERED: LORATADINE 10 MG TAB PO PRN (10:00)
--- NOTE | 2020-04-20 12:45 | NUR ---
LEFT MESSAGE AT [facility] RE PATIENT'S LOW BP AND HR AND PATIENT WANTING TO KNOW IF HE WILL BE DISCHARGED TODAY. PATIENT WAS ASYMPTOMATIC. WAITING FOR MD TO RESPOND.
[2020-04-20 13:20] VITALS: BP 87/45
--- NOTE | 2020-04-20 14:00 | NUR ---
DR. MENDOZA WAS IN TO SEE PATIENT. MD AWARE OF LOW BP AND ORDERED NS BOLUS 500 MLX1. MD STATED THAT HE WENT TO SEE PATIENT AND WILL DISCHARGE PATIENT TODAY.
[2020-04-20] MEDS ORDERED: SODIUM CHLORIDE 0.9% 500 ML IV ONE (14:15)
--- NOTE | 2020-04-20 15:00 | NUR ---
BECAUSE OF THE LOW BP AND HR, DR. DENTON WANTS PATIENT TO STAY ONE MORE DAY. PAGED DR. MENDOZA TO INFORM HIM BUT MD HAS NOT RESPONDED AT THIS TIME. PATIENT MADE AWARE OF SAME.
[2020-04-20 17:00] VITALS: BP 105/58
[2020-04-20] MEDS: METOPROLOL TARTRATE 25 MG TAB PO SCH (17:49)
[2020-04-20] MEDS: ASPirin 81 mg TAB PO SCH (17:49)
--- NOTE | 2020-04-20 18:00 | NUR ---
PATIENT STATED THAT HE WAS SEEN BY DR. DENTON AND WANTED HIM TO STAY ANOTHER DAY BECAUSE OF HIS LOW BP. NO NEW ORDERS NOTED MADE BY MD AT THIS TIME.
[2020-04-20] MEDS: LATANOPROST 0.005 % OPTH(EYE) SOL 2.5ML EACHEYE SCH (21:53)
[2020-04-20 22:00] VITALS: BP 104/52
[2020-04-21 05:00] VITALS: BP 99/57
[2020-04-21 05:40] LABS: Basophils # (auto) 0.1 10 ^3/uL (0-0.2); Basophils % (auto) 1.1 % (0.0-2.0); Eosinophils # (auto) 0.3 10 ^3/uL (0-0.8); Eosinophils % (auto) 4.6 % (0.0-7.0); Hematocrit 40.3 % (41.0-53.0); Hemoglobin 13.5 g/dL (13.5-17.5); Lymphocytes # (auto) 1.4 10 ^3/uL (0.4-5.4); Lymphocytes % (auto) 18.9 % (10.0-50.0); Mean Corpuscular Hemoglobin 31.8 pg (28.0-32.0); Mean Corpuscular Hgb Conc. 33.6 g/dL (32.0-36.0); Mean Corpuscular Volume 94.8 fL (80.0-100.0); Monocytes # (auto) 0.7 10 ^3/uL (0-1.3); Monocytes % (auto) 10.1 % (0.0-12.0); Neutrophils # (auto) 4.7 10 ^3/uL (1.6-8.6); Neutrophils % (auto) 65.3 % (37.0-80.0); Platelet Count (auto) 142 10^3/uL (140-450); Red Blood Cells 4.25 10^6/uL (4.5-5.90); Red Cell Distribution Width 13.9 % (11.8-14.3); White Blood Cell 7.2 10^3/uL (4.4-10.8)
[2020-04-21] MEDS: LEVOTHYROXINE SODIUM 50 MCG TAB PO SCH (06:04)
[2020-04-21 06:14] LABS: Potassium 4.3 mmol/L (3.5-5.1)
[2020-04-21 06:26] LABS: Albumin 3.2 g/dL (3.4-5.0); BUN/Creatinine Ratio 21.9; Bilirubin, Total 0.7 mg/dL (0.2-1.0); Calcium 8.8 mg/dL (8.5-10.1); Magnesium 2.5 mg/dL (1.6-2.6); Total Protein 6.2 g/dL (6.4-8.2)
[2020-04-21] MEDS: CHOLECALCIFEROL (VITD3) 1,000UNIT=25mCg TAB PO SCH (06:58)
[2020-04-21] MEDS: MULTIPLE VITAMINS W/ MINERALS TAB PO SCH (06:58)
[2020-04-21] MEDS: CLOPIDOGREL BISULFATE 75 MG TAB PO SCH (06:58)
[2020-04-21 09:20] VITALS: BP 113/69
[2020-04-21] MEDS: TIMOLOL MAL 0.5% OPTH(EYE) SOL 5ML EACHEYE SCH ×2 (10:04→22:01)
[2020-04-21] MEDS: SODIUM CHLORIDE 0.9% 1,000 ML IV SCH ×2 (10:07→23:30)
[2020-04-21] MEDS: ATORVASTATIN 20 MG TAB PO SCH (12:54)
[2020-04-21 13:00] VITALS: BP 111/64
--- NOTE | 2020-04-21 15:31 | NUR ---
Spoke to who said that patient may be discharge only if clears him. Patient heart rate was low ordered an EKG. Ekg done and is aware . I paged to let him know about patient and see if he will clear him for discharge. Still awaiting last ironer back.
[2020-04-21 17:13] VITALS: BP 112/61
--- NOTE | 2020-04-21 17:15 | NUR ---
Per pt cannot be discharged without being cleared by . Contacted a second time. Still awaiting call back
--- NOTE | 2020-04-21 17:50 | NUR ---
Spoke to and said that patient is clear to be discharged.
--- NOTE | 2020-04-21 18:00 | NUR ---
Called to let him know that said that the patient can be discharged. aware and said he will put in the discharge orders. Awaiting orders
[2020-04-21] MEDS: ASPirin 81 mg TAB PO SCH (18:21)
--- NOTE | 2020-04-21 19:50 | NUR ---
Opening Shift Note Assumed care of patient, awake and alert. No S/S of distress/SOB or pain. Instructed on POC and to call for assist PRN, will continue to monitor for changes Q1hr and PRN. Bed at lowest position. Call light within reach.
[2020-04-21 22:00] VITALS: BP 114/66
[2020-04-21] MEDS: LATANOPROST 0.005 % OPTH(EYE) SOL 2.5ML EACHEYE SCH (22:01)
[2020-04-22 05:00] VITALS: BP 125/79
[2020-04-22] MEDS: CHOLECALCIFEROL (VITD3) 1,000UNIT=25mCg TAB PO SCH (06:39)
[2020-04-22] MEDS: MULTIPLE VITAMINS W/ MINERALS TAB PO SCH (06:41)
[2020-04-22] MEDS: CLOPIDOGREL BISULFATE 75 MG TAB PO SCH (06:41)
[2020-04-22] MEDS ORDERED: LEVOTHYROXINE SODIUM 50 MCG TAB PO SCH (07:00)
--- NOTE | 2020-04-22 07:30 | NUR ---
OPENING SHIFT NOTE: PATIENT AWAKE, SITTING UP IN BED. A/OX4 THIS RN ATTEMPTING TO ADDRESS PATIENT CONCERNS AND UPDATE ON PLAN OF CARE. STILL AWAITING CARDIAC CLEARANCE FROM MD DENTON. RESPIRATIONS EVEN AND UNLABORED. WILL CONTINUE TO MONITOR.
--- NOTE | 2020-04-22 08:20 | NUR ---
PATIENT UP AMBULATING AROUND UNIT.
[2020-04-22 08:26] VITALS: BP 130/73
[2020-04-22] MEDS: TIMOLOL MAL 0.5% OPTH(EYE) SOL 5ML EACHEYE SCH (09:26)
--- NOTE | 2020-04-22 11:24 | NUR ---
Nutrition Assessment Note please see attached link for complete assessment Est energy needs BW 85 [id number] kcal (25-30 kcal/kg BW) Est protein needs:85-102g (1.0-1.2g/kg BW) Will reassess prn Addendum: 04/22/20 at [address] Amended: Links added.
[2020-04-22 13:00] VITALS: BP 123/56
[2020-04-22] MEDS: ATORVASTATIN 20 MG TAB PO SCH (13:20)
[2020-04-22 16:46] VITALS: BP 142/73
[2020-04-22 16:49] VITALS: BP 105/58
--- NOTE | 2020-04-22 17:27 | NUR ---
DISCHARGE: PATIENT GIVEN ALL EDUCATION MATERIALS. PATIENT VERBALIZED UNDERSTANDING INSTRUCTIONS. BOTH PIV'S REMOVED MANUAL PRESSURE APPLIED. TELE RETURNED TO CARDIO UNIT. PATIENT ABLE TO AMBULATE TO PRIVATE [facility] ACCOMPANIED BY STAFF MEMBER, WITHOUT INCIDENCES.
== END 2020-04-22 17:30 | disposition home or self-care (01) | DRG 36 ==
LOC: CATH 07:01 → TELE-WESTW 07:02
PROVIDERS: ADMIT Internal Medicine Cardiovascular Disease; ATTEND Internal Medicine
PROC: B3161ZZ Fluoroscopy of Right Internal Carotid Artery using Low Osmolar Contrast (ICD-10-PCS; principal; 2020-04-19)
PROC: 037K3DZ Dilation of Right Internal Carotid Artery with Intraluminal Device, Percutaneous Approach (ICD-10-PCS; 2020-04-19)
PROC: B3151ZZ Fluoroscopy of Bilateral Common Carotid Arteries using Low Osmolar Contrast (ICD-10-PCS; 2020-04-19)
DX: I65.23 Occlusion and stenosis of bilateral carotid arteries (principal); I71.4 Abdominal aortic aneurysm, without rupture; E78.5 Hyperlipidemia, unspecified; I10 Essential (primary) hypertension; I25.10 Atherosclerotic heart disease of native coronary artery without angina pectoris; I95.9 Hypotension, unspecified; Z20.828 Contact with and (suspected) exposure to other viral communicable diseases; Z86.73 Personal history of transient ischemic attack (TIA), and cerebral infarction without residual deficits; Z86.79 Personal history of other diseases of the circulatory system; Z95.1 Presence of aortocoronary bypass graft; Z95.5 Presence of coronary angioplasty implant and graft; Z95.820 Peripheral vascular angioplasty status with implants and grafts
CPT/HCPCS: 36415; 80053; 83735; 84439; 84443; 85025; 99152; 99153; G0378

== ENCOUNTER → 2020-09-15 | Outpatient (CLI) | payer OTHER ==
[~2020-09-15] MED LIST changes: -CLOP75TA41 PO; +CLOP75TA70 PO; -LISI-648 PO
[2020-09-15 08:17] LABS: Basophils # (auto) 0.1 10 ^3/uL (0-0.2); Basophils % (auto) 1.5 % (0.0-2.0); Eosinophils # (auto) 0.5 10 ^3/uL (0-0.8); Eosinophils % (auto) 7.9 % (0.0-7.0); Hematocrit 43.8 % (41.0-53.0); Hemoglobin 14.9 g/dL (13.5-17.5); Lymphocytes # (auto) 1.5 10 ^3/uL (0.4-5.4); Lymphocytes % (auto) 24.1 % (10.0-50.0); Mean Corpuscular Hemoglobin 31.9 pg (28.0-32.0); Mean Corpuscular Hgb Conc. 34.1 g/dL (32.0-36.0); Mean Corpuscular Volume 93.7 fL (80.0-100.0); Monocytes # (auto) 0.6 10 ^3/uL (0-1.3); Monocytes % (auto) 9.8 % (0.0-12.0); Neutrophils # (auto) 3.5 10 ^3/uL (1.6-8.6); Neutrophils % (auto) 56.7 % (37.0-80.0); Nucleated Red Blood Cells % 0.1 %; Platelet Count (auto) 171 10^3/uL (140-450); Red Blood Cells 4.67 10^6/uL (4.5-5.90); Red Cell Distribution Width 14.2 % (11.8-14.3); White Blood Cell 6.2 10^3/uL (4.4-10.8)
[2020-09-15 08:59] LABS: Albumin 3.6 g/dL (3.4-5.0); Calcium 9.1 mg/dL (8.5-10.1); Potassium 4.8 mmol/L (3.5-5.1)
[2020-09-15 09:04] LABS: BUN/Creatinine Ratio 17.9; Bilirubin, Total 0.8 mg/dL (0.2-1.0); Total Protein 7.2 g/dL (6.4-8.2)
== END | disposition home or self-care (01) ==
LOC: LAB 08:01
PROVIDERS: ATTEND Internal Medicine
DX: Z00.00 Encounter for general adult medical examination without abnormal findings (principal); I10 Essential (primary) hypertension; E78.5 Hyperlipidemia, unspecified
CPT/HCPCS: 36415; 80053; 80061; 82274; 84153; 84443; 85025

== ENCOUNTER → 2020-10-30 | Outpatient (CLI) | payer OTHER ==
[~2020-10-30] MED LIST changes: +CHOL-17 PO; -CHOL1000 PO
== END | disposition home or self-care (01) ==
LOC: LAB 13:23
PROVIDERS: ATTEND Internal Medicine Cardiovascular Disease
DX: R94.4 Abnormal results of kidney function studies (principal)
CPT/HCPCS: 36415; 82565; 84520

== ENCOUNTER → 2020-10-31 | Outpatient (CLI) | payer OTHER ==
[~2020-10-31] MED LIST changes: +IOHEXOL 350 MG/ML 100ML IJ ONE
[2020-10-31 09:56] VITALS: BP 129/76
[2020-10-31 10:28] VITALS: BP 135/70
== END | disposition home or self-care (01) ==
LOC: Rad HDHVI 09:50
PROVIDERS: ATTEND Internal Medicine Cardiovascular Disease
DX: I71.4 Abdominal aortic aneurysm, without rupture (principal)
CPT/HCPCS: G0463; Q9967

== ENCOUNTER → 2021-01-01 | Outpatient (CLI) | payer OTHER ==
[~2021-01-01] MED LIST changes: +ATOR40TA52 PO; -IOHEXOL 350 MG/ML 100ML IJ ONE; +LISI-716 PO; +MULT-1018 PO
[2021-01-01 08:00] VITALS: BP 123/68
[2021-01-01 08:25] VITALS: BP 112/61
== END | disposition home or self-care (01) ==
LOC: RADONC 07:56
PROVIDERS: ATTEND Internal Medicine Cardiovascular Disease
DX: I71.4 Abdominal aortic aneurysm, without rupture (principal)
CPT/HCPCS: 93005; G0463

== ENCOUNTER 2021-01-03 06:45 | Inpatient (IN) | payer OTHER ==
[2021-01-01 10:52] LABS: Basophils # (auto) 0.1 10 ^3/uL (0-0.2); Eosinophils # (auto) 0.4 10 ^3/uL (0-0.8); Eosinophils % (auto) 5.3 % (0.0-7.0); Hematocrit 42.1 % (41.0-53.0); Lymphocytes # (auto) 1.9 10 ^3/uL (0.4-5.4); Lymphocytes % (auto) 26.2 % (10.0-50.0); Mean Corpuscular Hemoglobin 32.8 pg (28.0-32.0); Mean Corpuscular Hgb Conc. 35.7 g/dL (32.0-36.0); Mean Corpuscular Volume 92.1 fL (80.0-100.0); Monocytes # (auto) 0.9 10 ^3/uL (0-1.3); Monocytes % (auto) 11.7 % (0.0-12.0); Neutrophils # (auto) 4.1 10 ^3/uL (1.6-8.6); Neutrophils % (auto) 55.8 % (37.0-80.0); Red Blood Cells 4.57 10^6/uL (4.5-5.90); Red Cell Distribution Width 13.5 % (11.8-14.3); White Blood Cell 7.4 10^3/uL (4.4-10.8)
[2021-01-01 11:24] LABS: BUN/Creatinine Ratio 19.8; Calcium 9.4 mg/dL (8.5-10.1)
[~2021-01-03] VITALS: Ht 182.9 cm; Wt 85.0 kg
[~2021-01-03 06:45] MED LIST changes: -ASPI81CH59 PO; -METO25TA5 PO; -MULT-928 PO; -SIMV-13 PO
[2021-01-03] MEDS ORDERED: LIDOCAINE 2%HCL (LOCAL ANESTH.) INJ 20ML MDV ONE (07:25)
[2021-01-03] MEDS ORDERED: IOHEXOL 350 MG/ML 100ML IJ ONE (07:25)
[2021-01-03] MEDS ORDERED: ANGIOMAX 250 MG VIAL IV ONE (08:09)
[2021-01-03] MEDS ORDERED: fentaNYL CITRATE 100 MCG/2 ML VL ONE (08:09)
[2021-01-03] MEDS ORDERED: SODIUM CHL 0.9% 50 ML ONE (08:10)
[2021-01-03] MEDS ORDERED: MIDAZOLAM HCL 1MG/1ML-2 ML VIAL ONE (08:10)
[2021-01-03] MEDS ORDERED: IODIXANOL 320MG/ML 100ML BTL IV ONE (09:59)
[2021-01-03] MEDS ORDERED: ONDANSETRON HCL 4 MG/2 ML VIAL IV PRN (11:15)
[2021-01-03] MEDS ORDERED: ACETAMINOPHEN 500 MG TAB PO PRN (11:15)
[2021-01-03] MEDS ORDERED: LORATADINE 10 MG TAB PO PRN (11:15)
[2021-01-03] MEDS ORDERED: MORPHINE SULF INJ 2 MG/ML SYRINGE 1ML IV PRN (11:15)
[2021-01-03] MEDS ORDERED: NITROGLYCERIN 0.4 MG SL TAB SL PRN (11:15)
[2021-01-03] MEDS ORDERED: HYDROcodone-ACET 5/325MG TAB PO PRN (11:15)
[2021-01-03 13:00] VITALS: BP 136/80
[2021-01-03 14:30] VITALS: BP 142/95
[2021-01-03 16:47] VITALS: BP 155/97
[2021-01-03] MEDS ORDERED: LATANOPROST 0.005 % OPTH(EYE) SOL 2.5ML EACHEYE SCH (18:00)
[2021-01-03] MEDS ORDERED: ATORVASTATIN 20 MG TAB PO SCH (22:00)
[2021-01-03 22:30] VITALS: BP 127/70
[2021-01-04 04:56] VITALS: BP 106/61
[2021-01-04] MEDS ORDERED: LEVOTHYROXINE SODIUM 50 MCG TAB PO SCH (07:00)
[2021-01-04] MEDS ORDERED: CHOLECALCIFEROL (VITD3) 1,000UNIT=25mCg TAB PO SCH (07:00)
[2021-01-04 07:13] LABS: Basophils # (auto) 0.1 10 ^3/uL (0-0.2); Basophils % (auto) 0.7 % (0.0-2.0); Eosinophils # (auto) 0.3 10 ^3/uL (0-0.8); Eosinophils % (auto) 3.8 % (0.0-7.0); Hematocrit 43.2 % (41.0-53.0); Lymphocytes # (auto) 1.5 10 ^3/uL (0.4-5.4); Lymphocytes % (auto) 16.2 % (10.0-50.0); Mean Corpuscular Hgb Conc. 34.8 g/dL (32.0-36.0); Mean Corpuscular Volume 91.9 fL (80.0-100.0); Monocytes # (auto) 0.9 10 ^3/uL (0-1.3); Monocytes % (auto) 9.7 % (0.0-12.0); Neutrophils # (auto) 6.2 10 ^3/uL (1.6-8.6); Neutrophils % (auto) 69.6 % (37.0-80.0); Red Cell Distribution Width 13.4 % (11.8-14.3)
[2021-01-04 08:51] VITALS: BP 117/69
[2021-01-04] MEDS ORDERED: MULTIPLE VITAMIN TAB PO SCH (10:00)
[2021-01-04] MEDS ORDERED: TIMOLOL MAL 0.5% OPTH(EYE) SOL 5ML EACHEYE SCH (10:00)
[2021-01-04] MEDS ORDERED: LISINOPRIL 10 MG TAB PO SCH (10:00)
[2021-01-04 13:00] VITALS: BP 132/85
[2021-01-04 16:45] VITALS: BP 138/82
== END 2021-01-04 18:50 | disposition home or self-care (01) | DRG 254 ==
LOC: CATH 06:45 → TELE 11:01 → TELE-CENTR 12:54
PROVIDERS: ADMIT Internal Medicine Cardiovascular Disease; ATTEND Internal Medicine Cardiovascular Disease
PROC: 04703DZ Dilation of Abdominal Aorta with Intraluminal Device, Percutaneous Approach (ICD-10-PCS; principal; 2021-01-03)
PROC: 047C3DZ Dilation of Right Common Iliac Artery with Intraluminal Device, Percutaneous Approach (ICD-10-PCS; 2021-01-03)
PROC: B440ZZ3 Ultrasonography of Abdominal Aorta, Intravascular (ICD-10-PCS; 2021-01-03)
DX: T82.310A Breakdown (mechanical) of aortic (bifurcation) graft (replacement), initial encounter (principal); I71.4 Abdominal aortic aneurysm, without rupture; E78.5 Hyperlipidemia, unspecified; Z20.822 Contact with and (suspected) exposure to COVID-19; I10 Essential (primary) hypertension; I25.10 Atherosclerotic heart disease of native coronary artery without angina pectoris; I72.3 Aneurysm of iliac artery; J44.9 Chronic obstructive pulmonary disease, unspecified; Y83.8 Other surgical procedures as the cause of abnormal reaction of the patient, or of later complication, without mention of misadventure at the time of the procedure; Y92.234 Operating room of hospital as the place of occurrence of the external cause
CPT/HCPCS: 36415; 80048; 85025; 85049; 86850; 86900; 86901; 86920; 99152; 99153; C1769; G0378; J2250; Q9967

== ENCOUNTER → 2021-09-10 | Outpatient (CLI) | payer OTHER ==
[2021-09-10 09:29] LABS: Basophils # (auto) 0.1 10 ^3/uL (0-0.2); Basophils % (auto) 1.3 % (0.0-2.0); Eosinophils # (auto) 0.5 10 ^3/uL (0-0.8); Eosinophils % (auto) 8.1 % (0.0-7.0); Hematocrit 45.2 % (41.0-53.0); Hemoglobin 14.9 g/dL (13.5-17.5); Lymphocytes # (auto) 0.8 10 ^3/uL (0.4-5.4); Lymphocytes % (auto) 12.9 % (10.0-50.0); Mean Corpuscular Hemoglobin 31.1 pg (28.0-32.0); Mean Corpuscular Hgb Conc. 32.9 g/dL (32.0-36.0); Mean Corpuscular Volume 94.5 fL (80.0-100.0); Monocytes # (auto) 0.6 10 ^3/uL (0-1.3); Monocytes % (auto) 8.8 % (0.0-12.0); Neutrophils # (auto) 4.3 10 ^3/uL (1.6-8.6); Neutrophils % (auto) 68.9 % (37.0-80.0); Nucleated Red Blood Cells % 0.2 %; Red Blood Cells 4.78 10^6/uL (4.5-5.90); White Blood Cell 6.3 10^3/uL (4.4-10.8)
[2021-09-10 10:32] LABS: Albumin 3.6 g/dL (3.4-5.0); Calcium 9.4 mg/dL (8.5-10.1); Potassium 4.3 mmol/L (3.5-5.1)
[2021-09-10 10:38] LABS: BUN/Creatinine Ratio 18.6; Bilirubin, Total 0.9 mg/dL (0.2-1.0); Total Protein 7.3 g/dL (6.4-8.2)
[2021-09-10 10:44] LABS: Free T4 (Free Thyroxine) 0.97 ng/dL (0.89-1.76); Prostate Specific Antigen 0.57 ng/mL (0.0-4.0)
== END | disposition home or self-care (01) ==
LOC: LAB 07:58
PROVIDERS: ATTEND Internal Medicine
DX: Z12.5 Encounter for screening for malignant neoplasm of prostate (principal); Z12.11 Encounter for screening for malignant neoplasm of colon; I10 Essential (primary) hypertension; E03.9 Hypothyroidism, unspecified; E78.5 Hyperlipidemia, unspecified; E55.9 Vitamin D deficiency, unspecified
CPT/HCPCS: 36415; 80053; 80061; 82274; 82306; 84153; 84439; 84443; 85025

== ENCOUNTER → 2022-03-04 | Outpatient (CLI) | payer OTHER ==
[2022-03-04 13:13] VITALS: BP 160/81
[2022-03-04 15:13] VITALS: BP 174/90
== END | disposition home or self-care (01) ==
LOC: Rad HDHVI 13:07
PROVIDERS: ATTEND Internal Medicine Cardiovascular Disease
DX: K57.30 Diverticulosis of large intestine without perforation or abscess without bleeding (principal); I71.2 Thoracic aortic aneurysm, without rupture; M47.817 Spondylosis without myelopathy or radiculopathy, lumbosacral region; M47.814 Spondylosis without myelopathy or radiculopathy, thoracic region; R94.4 Abnormal results of kidney function studies
CPT/HCPCS: 36415; 74175; 82565; 84520; G0463

== ENCOUNTER → 2022-03-17 | Outpatient (CLI) | payer OTHER | END | disposition home or self-care (01) | LOC: Rad HDHVI 09:42 | PROVIDERS: ATTEND Internal Medicine Cardiovascular Disease | DX: I08.8 Other rheumatic multiple valve diseases (principal); R06.02 Shortness of breath; R07.89 Other chest pain | CPT/HCPCS: 93306 ==

== ENCOUNTER → 2022-03-31 | Outpatient (CLI) | payer OTHER | END | disposition home or self-care (01) | LOC: Rad HDHVI 08:58 | PROVIDERS: ATTEND Internal Medicine Cardiovascular Disease | DX: I10 Essential (primary) hypertension (principal); I25.10 Atherosclerotic heart disease of native coronary artery without angina pectoris; E78.5 Hyperlipidemia, unspecified; R60.9 Edema, unspecified; R06.02 Shortness of breath; R07.89 Other chest pain; Z95.1 Presence of aortocoronary bypass graft; Z82.49 Family history of ischemic heart disease and other diseases of the circulatory system | CPT/HCPCS: 78452; 93017; 96374; A9500 ==

== ENCOUNTER → 2023-06-05 | Outpatient (CLI) | payer OTHER ==
[~2023-06-05] MED LIST changes: -LATA0.0019 EACHEYE; +LATA0.008 EACHEYE; -LISI-716 PO; +LISI10TA34 PO
[2023-06-05 08:29] LABS: Basophils # (auto) 0.1 10 ^3/uL (0-0.2); Eosinophils # (auto) 0.4 10 ^3/uL (0-0.8); Eosinophils % (auto) 6.3 % (0.0-7.0); Hematocrit 48.4 % (41.0-53.0); Lymphocytes # (auto) 1.3 10 ^3/uL (0.4-5.4); Lymphocytes % (auto) 19.4 % (10.0-50.0); Mean Corpuscular Hemoglobin 31.3 pg (28.0-32.0); Mean Corpuscular Hgb Conc. 33.1 g/dL (32.0-36.0); Mean Corpuscular Volume 94.4 fL (80.0-100.0); Monocytes # (auto) 0.6 10 ^3/uL (0-1.3); Monocytes % (auto) 9.6 % (0.0-12.0); Neutrophils # (auto) 4.2 10 ^3/uL (1.6-8.6); Neutrophils % (auto) 63.7 % (37.0-80.0); Nucleated Red Blood Cells % 0.1 %; Red Blood Cells 5.12 10^6/uL (4.5-5.90); Red Cell Distribution Width 13.9 % (11.8-14.3); White Blood Cell 6.6 10^3/uL (4.4-10.8)
[2023-06-05 08:53] LABS: Alanine Aminotransferase 26 U/L (7-40); Alkaline Phosphatase 68 U/L (46-116); Anion Gap 7 (5-15); BUN/Creatinine Ratio 15.2 (10.0-20.0); Blood Urea Nitrogen 17 mg/dL (9-23); Calcium 10.4 mg/dL (8.5-10.1); Carbon Dioxide 30 mmol/L (20-30); Chloride 105 mmol/L (98-107); Glucose 87 mg/dL (74-106); LDL Cholesterol 87 mg/dL (< 100); Sodium 142 mmol/L (136-145); Triglycerides 109 mg/dL (< 150)
[2023-06-05 08:54] LABS: Albumin 4.5 g/dL (3.2-4.8); Aspartate Aminotransferase 23 U/L (13-40); Cholesterol 139 mg/dL (< 200); HDL Cholesterol 34 mg/dL (40-59); Total Protein 7.3 g/dL (5.7-8.2)
[2023-06-05 09:53] LABS: Urine Blood TRACE /uL (Negative); Urine Clarity Clear (Clear); Urine Color Yellow (Yellow); Urine Protein, UAD Negative (Negative); Urine Specific Gravity 1.023 (1.001-1.035); Urine Urobilinogen Normal (Negative); Urine pH 5.5 (5.0-8.0)
== END | disposition home or self-care (01) ==
LOC: LAB 07:54
PROVIDERS: ATTEND Internal Medicine Cardiovascular Disease
DX: C61 Malignant neoplasm of prostate (principal); D51.3 Other dietary vitamin B12 deficiency anemia; E11.9 Type 2 diabetes mellitus without complications; I10 Essential (primary) hypertension; D64.9 Anemia, unspecified; R00.2 Palpitations; R53.1 Weakness; R30.0 Dysuria; E55.9 Vitamin D deficiency, unspecified
CPT/HCPCS: 36415; 80053; 80061; 81003; 82306; 83036; 84153; 84403; 84443; 85025

== ENCOUNTER → 2023-06-16 | Outpatient (CLI) | payer OTHER ==
[~2023-06-16] VITALS: Ht 182.9 cm; Wt 70.3 kg
== END | disposition home or self-care (01) ==
LOC: Rad HDHVI 12:53
PROVIDERS: ATTEND Internal Medicine Cardiovascular Disease
DX: I25.10 Atherosclerotic heart disease of native coronary artery without angina pectoris (principal); I10 Essential (primary) hypertension; I63.9 Cerebral infarction, unspecified; J44.9 Chronic obstructive pulmonary disease, unspecified; E78.00 Pure hypercholesterolemia, unspecified; I25.2 Old myocardial infarction; Z95.1 Presence of aortocoronary bypass graft; Z86.79 Personal history of other diseases of the circulatory system; Z82.49 Family history of ischemic heart disease and other diseases of the circulatory system
CPT/HCPCS: 78452; 93017; 96374; A9500

== ENCOUNTER → 2023-06-17 | Outpatient (CLI) | payer OTHER | END | disposition home or self-care (01) | LOC: Rad HDHVI 09:52 | PROVIDERS: ATTEND Internal Medicine Cardiovascular Disease | DX: I08.8 Other rheumatic multiple valve diseases (principal); I10 Essential (primary) hypertension; E78.5 Hyperlipidemia, unspecified | CPT/HCPCS: 93306 ==

== ENCOUNTER → 2024-06-28 | Outpatient (CLI) | payer OTHER ==
--- NOTE | 2024-07-06 16:32 | DVHSR ---
APPROVED REPORT EXAM: Two-dimensional and M-mode echocardiogram with Doppler and color Doppler. DIMENSIONS LVDd4.1 (3.8-5.7cm)LA (2D)3.5 (1.9-4.0cm)Aortic Root3.7 (2.0-3.7cm) LVDs2.9 (2.5-4.0cm)LA (MM) (1.9-4.0cm)Aortic Cusp Exc1.6 (1.5-2.0cm) EF (%) 55.8 (55-70%)Rt. Atrium3.7 (1.9-4.0cm)Asc. Aorta3.4 cm IVSd1.1 (0.7-1.1cm)RV (D)3.8 (1.8-2.4cm) PWd1.2 (0.7-1.1cm) Mitral Valve MitralMitral Stenosis E wave0.58m/sMV Mean GR.mmHg A wave0.80m/sMV Peak GR.mmHg E/A ratio0.72D MVAcm2 DECEL [id number] 1/2 Timems Aortic Valve Aortic ValveAortic Stenosis V10.93m/Yoav Mean GR.2mmHg V21.11m/Yoav Peak GR.5mmHg AI P 1/2 Qesr269.26ms Pulmonic Valve V20.69m/s Tricuspid Valve TR Velocity2.37m/s [id number] LEFT VENTRICLE The Ejection Fraction is >55%. ATRIA The left atrial size is normal. The right atrium size is normal. MITRAL VALVE The mitral valve is normal in structure and function. There is no mitral valve regurgitation noted. PULMONIC VALVE The pulmonic valve is not well visualized. There is trace pulmonic valvular regurgitation. TRICUSPID VALVE The tricuspid valve is grossly normal. There is mild tricuspid regurgitation. AORTIC VALVE The aortic valve opens well. No aortic regurgitation is present. GREAT VESSELS The aortic root is normal size. PERICARDIAL EFFUSION There is no pericardial effusion. Conclusion MILD TR EF >55%
== END | disposition home or self-care (01) ==
LOC: Rad HDHVI 12:43
PROVIDERS: ATTEND Internal Medicine Cardiovascular Disease
DX: I07.1 Rheumatic tricuspid insufficiency (principal); I10 Essential (primary) hypertension; E78.5 Hyperlipidemia, unspecified
CPT/HCPCS: 93306

== ENCOUNTER → 2024-07-12 | Outpatient (CLI) | payer OTHER ==
[2024-07-12 10:08] LABS: Urine Bacteria None Seen /hpf (None Seen)
[2024-07-12 10:29] LABS: Urine Blood TRACE /uL (Negative); Urine Clarity Clear (Clear); Urine Color Yellow (Yellow); Urine Hyaline Cast FEW /lpf (0 - 2); Urine Mucus FEW (None Seen); Urine Protein, UAD TRACE (Negative); Urine Specific Gravity 1.016 (1.001-1.035); Urine Squamous Epithelial Cell FEW /hpf (<5); Urine Urobilinogen Normal (Negative); Urine WBC <1 /hpf (0 - 3); Urine pH 6.5 (5.0-9.0)
[2024-07-12 10:35] LABS: Basophils # (auto) 0.1 10 ^3/uL (0-0.2); Basophils % (auto) 1.1 % (0.0-2.0); Eosinophils # (auto) 0.4 10 ^3/uL (0-0.8); Eosinophils % (auto) 5.5 % (0.0-7.0); Hematocrit 41.3 % (41.0-53.0); Hemoglobin 14.2 g/dL (13.5-17.5); Lymphocytes # (auto) 1.3 10 ^3/uL (0.4-5.4); Mean Corpuscular Hgb Conc. 34.5 g/dL (32.0-36.0); Mean Corpuscular Volume 92.8 fL (80.0-100.0); Monocytes # (auto) 0.7 10 ^3/uL (0-1.3); Monocytes % (auto) 10.2 % (0.0-12.0); Neutrophils # (auto) 4.5 10 ^3/uL (1.6-8.6); Neutrophils % (auto) 64.2 % (37.0-80.0); Nucleated Red Blood Cells % 0.1 %; Platelet Count (auto) 142 10^3/uL (140-450); Red Blood Cells 4.45 10^6/uL (4.5-5.90); Red Cell Distribution Width 13.7 % (11.8-14.3); White Blood Cell 7.1 10^3/uL (4.4-10.8)
[2024-07-12 10:55] LABS: Alanine Aminotransferase 24 U/L (7-40); Alkaline Phosphatase 65 U/L (46-116); Anion Gap 6 (5-15); BUN/Creatinine Ratio 13.2 (10.0-20.0); Blood Urea Nitrogen 15 mg/dL (9-23); Calcium 10.4 mg/dL (8.7-10.4); Carbon Dioxide 31 mmol/L (20-31); Chloride 105 mmol/L (98-107); Sodium 142 mmol/L (136-145); Triglycerides 126 mg/dL (< 150)
[2024-07-12 10:56] LABS: LDL Cholesterol 80 mg/dL (< 100)
[2024-07-12 10:57] LABS: Albumin 4.1 g/dL (3.2-4.8); Aspartate Aminotransferase 24 U/L (13-40); Bilirubin, Total 0.9 mg/dL (0.2-1.0); Cholesterol 132 mg/dL (< 200); Glucose 63 mg/dL (74-106); HDL Cholesterol 40 mg/dL (40-59); Total Protein 6.5 g/dL (5.7-8.2)
== END | disposition home or self-care (01) ==
LOC: LAB 09:55
PROVIDERS: ATTEND Internal Medicine
DX: I12.9 Hypertensive chronic kidney disease with stage 1 through stage 4 chronic kidney disease, or unspecified chronic kidney disease (principal); N18.2 Chronic kidney disease, stage 2 (mild); E03.9 Hypothyroidism, unspecified; E78.2 Mixed hyperlipidemia; E83.52 Hypercalcemia; R82.90 Unspecified abnormal findings in urine; Z79.899 Other long term (current) drug therapy
CPT/HCPCS: 36415; 80053; 80061; 81001; 83036; 84439; 84443; 85025

== ENCOUNTER → 2024-07-19 | Outpatient (CLI) | payer OTHER ==
[~2024-07-19] MED LIST changes: +IOHEXOL 350 MG/ML 100ML IJ ONE
[2024-07-19 13:38] VITALS: BP 149/97; PULSE 61; RESP 18; O2SAT 97
[2024-07-19 14:00] VITALS: BP 135/72; PULSE 65; RESP 18; O2SAT 97
--- NOTE | 2024-07-19 15:15 | DVH ---
Procedure: CT ANGIO AORTIC ABDOMINAL 07/19/2024 01:39 PM Indication: AAA Comparison Study: CT angiogram dated 03/04/2022 Technique: Axial images were obtained and reformatted in coronal and sagittal planes. Coronal sagitta l and rotating 3D MIP images were obtained and submitted for review. All CT scans at this medical facility are performed using dose modulation techniques as appropriate t o a performed exam including the following: Automated exposure control was utilized; adjustment of th e MA and/or KV according to patient size; and use of iterative reconstruction technique. CT Dose: CTDI volume is 6.71 mGy. 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 The aly th of the aneurysm is 11.5 cm. Large circumferential endoleak due to a defect in the proximal part of the graft, 2.5 cm from proximal end. 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 The bilateral renal arteries , superior mesenteric artery is patent. Inferior mesenteric artery i dentified. Diffuse mixed plaque formation in the aortoiliac arteries noted. Ulcerated plaques are se en in distal thoracic aorta. Lower Chest: Unremarkable. Hepatobiliary: Unremarkable. Spleen: Unremarkable. Pancreas: Unremarkable. Adrenal Glands: Unremarkable. tract: The kidneys are normal in size bilaterally without hydronephrosis or nephrolithiasis. Stabl e bilateral renal cysts measuring up to 4.4 cm in the left kidney. The urinary bladder is unremarkabl e. GI tract: The stomach is grossly normal in appearance. No evidence of small bowel obstruction. The la rge bowel is unremarkable. The appendix is not visualized. No inflammatory change is noted in the ri ght lower quadrant. Lymphatics: No mesenteric, retroperitoneal or periportal lymphadenopathy. Pelvic Organs: Unremarkable Bones/soft tissues: No acute abnormality. Multilevel degenerative changes of the lumbar spine noted. Other: None. IMPRESSION: Interval enlargement of aneurysm endoleak compared to the prior study of 2021. The aneurysm now christine ures 9.2 cm in maximum diameter, previously 8.9 cm. Endoleak is much larger and circumferential. The re is 360 degree disruption of the stent approximately 2.5 cm from the proximal end. Recommend vascul ar surgical consultation. We are in the process of contacting the ordering physician to communicate the findings.
== END | disposition home or self-care (01) ==
LOC: Rad HDHVI 13:17
PROVIDERS: ATTEND Internal Medicine Cardiovascular Disease
DX: I71.43 Infrarenal abdominal aortic aneurysm, without rupture (principal); I77.1 Stricture of artery; I70.0 Atherosclerosis of aorta; N28.1 Cyst of kidney, acquired; M47.816 Spondylosis without myelopathy or radiculopathy, lumbar region; I71.40 Abdominal aortic aneurysm, without rupture, unspecified
CPT/HCPCS: 74175; G0463; Q9967

== ENCOUNTER → 2024-08-30 | Outpatient (CLI) | payer OTHER ==
[~2024-08-30] MED LIST changes: -IOHEXOL 350 MG/ML 100ML IJ ONE
--- NOTE | 2024-08-30 13:17 | DVH ---
EXAM: XY CHEST TWO VIEWS ROUTINE CLINICAL HISTORY: pain COMPARISON: None TECHNIQUE: Frontal and lateral view of the chest was obtained FINDINGS: Lines and Tubes: None Lungs: No focal consolidation. Pleura: No effusion. No pneumothorax. Cardiomediastinal contours: Unremarkable Bones: No acute osseous abnormality. IMPRESSION: No acute cardiopulmonary disease.
== END | disposition home or self-care (01) ==
LOC: Rad HDHVI 11:37
PROVIDERS: ATTEND Internal Medicine Cardiovascular Disease
DX: Z01.818 Encounter for other preprocedural examination (principal)
CPT/HCPCS: 71046

== ENCOUNTER 2024-10-18 10:52 | Emergency (ER) | payer OTHER ==
[~2024-10-18] VITALS: Ht 182.9 cm; Wt 68.2 kg
--- NOTE | 2024-10-18 11:14 | ED.PDOC ---
GI ASSESSMENT HPI Comments 83 year old male presents to the ED via EMS with a chief complaint of pelvic pain onset today (10/18/24) about 1 hour ago. Per EMS, patient was helping into the shower when he began experiencing bilateral flank pain radiating to groin area as well as low back. Patient rates pain 04/07. States he is currently on blood thinners, unsure which one. PMHx HTN, hypothyroid. Denies chest pain, shortness of breath, dizziness, nausea, vomiting, diarrhea, weakness, fever, chills. No other symptoms or modifying factors present at this time. Chief Complaint: Flank Pain Time Seen by MD: 10:58 Primary Care Provider: Mireya MENDEZ Reviewed Notes: Medications, Allergies Allergies: Coded Allergies: NO KNOWN ALLERGIES (Unverified , 04/13/20) Home Meds Reported Medications Lisinopril (Lisinopril) 10 Mg Tab, 10 MG PO DAILY for blood pressure 01/01/21 Atorvastatin Calcium (ATORVASTATIN CALCIUM) 40 Mg Tab, 1 TAB PO DAILY 01/01/21 Multiple Vitamin (Multivitamins) Tab, 1 TAB PO DAILY 01/01/21 Loratadine (Claritin) 10 Mg Tab, 1 TAB PO DAILY PRN for ALLERGIES 04/13/20 Cholecalciferol (Vitamin D3) 1,000 Unit Tab, 1000 UNIT PO QAM for SUPPLEMENT 04/13/20 Timolol Maleate (Ophth) (TIMOPTIC) 0.5 % Tonia, 1 DROP EACHEYE DAILY for GLAUCOMA, ML 04/13/20 Levothyroxine Sodium (Levothyroxine Sodium) 50 Mcg Tab, 50 MCG PO QAM for HYPOTHYROIDISM 04/13/20 Latanoprost (LATANOPROST) 0.005 % Tonia, 1 DROP EACHEYE QPM for GLAUCOMA 04/13/20 Clopidogrel Bisulfate (CLOPIDOGREL) 75 Mg Tab, 75 MG PO QAM for CAD 04/13/20 Information Source: Patient, Emergency Med Personnel Mode of Arrival: EMS Timing: Hours Duration: Since onset Prehospital treatment: None Quality: Sharp Severity: Moderate Recent: None Recent Hx of: None Pain Location: Suprapubic Modifying Factors: Nothing Associated sign and symptoms: Abdominal Pain Past Medical History PAST MEDICAL HISTORY: HTN, Thyroid Surgical History: CABG Surgical History (Other): AAA, stents Social History Smoker: Non-Smoker Alcohol: Denies ETOH Use Drugs: Denies Drug Use Lives In: Home Constitutional: denies: chills, diaphoresis, fatigue, fever, malaise, sweats, weakness, others EENTM: denies: blurred vision, double vision, ear bleeding, ear discharge, ear drainage, ear pain, ear ringing, eye pain, eye redness, hearing loss, mouth pain, mouth swelling, nasal discharge, nose bleeding, nose congestion, nose pain, photophobia, tearing, throat pain, throat swelling, voice changes, others Respiratory: denies: cough, hemoptysis, orthopnea, SOB at rest, shortness of breath, SOB with excertion, stridor, wheezing, others Cardiovascular: denies: chest pain, dizzy spells, diaphoresis, Dyspnea on exertion, edema, irregular heart beat, left arm pain, lightheadedness, palpitations, PND, syncope, others Gastrointestinal: reports: abdominal pain; denies: abdomen distended, blood streaked bowels, constipated, diarrhea, dysphagia, difficulty swallowing, hematemesis, melena, nausea, poor appetite, poor fluid intake, rectal bleeding, rectal pain, vomiting, others Genitourinary: reports: testicle pain, others (pelvic pain); denies: burning, dysuria, flank pain, frequency, hematuria, incontinence, penile discharge, penile sore, pain, testicle swelling, urgency Neurological: denies: dizziness, fainting, headache, left sided numbness, left sided weakness, numbness, paresthesia, pre-existing deficit, right sided num bness, right sided weakness, seizure, speech problems, tingling, tremors, weakness, others Musculoskeletal: reports: back pain; denies: gout, joint pain, joint swelling, muscle pain, muscle stiffness, neck pain, others Integumetry: denies: bruises, change in color, change in hair/nails, dryness, laceration, lesions, lumps, rash, wounds, others Allergic/Immunocompromised: denies: Difficulty Healing, Frequent Infections, Hi ves, Itching, others Hematologic/Lymphatic: denies: anemia, blood clots, easy bleeding, easy bruising, swollen glands, others Endocrine: denies: excessive hunger, excessive sweating, excessive thirst, excessive urination, flushing, intolerance to cold, intolerance to heat, unexplained weight gain, unexplained weight loss, others Psychiatric: denies: anxiety, bipolar disorder, depression, hopeless, panic disorder, schizophrenia, sleepless, suicidal, others All Other Systems: Reviewed and Negative Physical Exam General Appearance: Moderate Distress, Normal HEENT: Normal ENT Inspection, Pharynx Normal, TMs Normal Neck: Full Range of Motion, Non-Tender, Normal, Normal Inspection Respiratory: Chest Non-Tender, Lungs Clear, No Accessory Muscle Use, No Respiratory Distress, Normal Breath Sounds Cardiovascular: No Edema, No JVD, No Murmur, No Gallop, Normal Peripheral Pulses, Regular Rate/Rhythm Breast Exam: Deferred Gastrointestinal: No Organomegaly, Non Tender, No Pulsatile Mass, Normal Bowel Sounds, Soft Genitalia: Deferred Pelvic: Deferred Rectal: Deferred Extremities: No calf tenderness, Normal capillary refill, Normal inspection, Normal range of motion, Non-tender, No pedal edema Musculoskeletal : Apperance: Normal Neurologic: Alert, specialist icu II-XII nml as Tested, No Motor Deficits, Normal Affect, Normal Mood, No Sensory Deficits Cerebellar Function: NOT DONE Reflexes: NOT DONE Skin: Dry, Normal Color, Warm Peripheral Pulses: 3+ Radial (R), 3+ Radial (L) Lymphatic: No Adenopathy Was a procedure done? Was a procedure done?: Yes Sedation Sedation?: No Central Line Recorder of insertion practice: [employer] Occupation of veterinary technician assistant: Attending Physician Indication: Hypotension, CVP monitoring Room prepared for procedure: Yes [employer] performed hand hygien: Yes Maximal sterile barrier precau: Mask/Eye shield, Sterile gown Skin Preparation: Chlorhexidine gluconate, Providine iodine Skin preparation completely dr: Yes Insertion site: Right, Internal jugular Central line catheter type: [id number] dialysis Number of lumens: 3 Antiseptic ointment applied to: Yes Intubation Indication: Respiratory Insufficiency Pretreated with: Analgesia, Sedation Medicated with: Vecuronium Intubation Approach: Orotracheal Intubation size: cm (8) GI differential Dx Differential Diagnosis: Constipation, Diverticular disease, Esophagitis, Gastritis/PUD, Gastroenteritis X-Ray, Labs, Meds, VS Vital Signs Date Time Temp Pulse Resp B/P (MAP) Pulse Ox O2 Delivery O2 Flow Rate FiO2 10/18/24 16:45 93.6 130 19 104/65 (78) 90 93.6 10/18/24 16:32 93.6 133 18 116/71 (86) 91 93.6 10/18/24 16:12 96.4 123 20 91/50 (64) 92 96.4 10/18/24 15:30 124/79 10/18/24 15:30 128 18 124/79 (94) 10/18/24 15:24 98/32 10/18/24 15:20 109 18 86/32 (50) 10/18/24 15:01 98/32 10/18/24 15:00 72 17 98/32 (54) 92 10/18/24 12:52 77 18 168/88 10/18/24 12:22 77 18 172/110 10/18/24 10:58 76 10/18/24 10:55 98.1 74 16 168/100 (122) 100 98.1 10/18/24 10:53 98.1 74 16 168/100 (122) 100 98.1 10/18/24 10:53 Room Air* 0 21 Lab Test 10/18/24 15:30 10/18/24 12:09 10/18/24 11:22 Range/Units Lactic Acid Level 9.3 *H 0.4-2.0 mmol/L Urine Color Yellow Yellow Urine Clarity Clear Clear Urine pH 7.5 5.0-9.0 Urine Specific [place] 1.019 1.001-1.035 Urine Protein 2+ H Negative Urine Ketones Negative Negative Urine Blood 1+ H Negative /uL Urine Nitrite Negative Negative Urine Bilirubin Negative Negative Urine Urobilinogen Normal Negative mg/dL Urine Leukocyte Esterase Negative Negative /uL Urine RBC 12 0 - 3 /hpf Urine Microscopic WBC 1 0-3 /HPF Urine Squamous Epithelial Cells None seen <5 /hpf Urine Bacteria None seen None Seen /hpf Urine Glucose Normal Normal mg/dL White Blood Count 7.1 4.4-10.8 10^3/uL Red Blood Count 4.53 4.5-5.90 10^6/uL Hemoglobin 14.5 13.5-17.5 g/dL Hematocrit 42.1 41.0-53.0 % Mean Corpuscular Volume 92.8 80.0-100.0 fL Mean Corpuscular Hemoglobin 31.9 28.0-32.0 pg Mean Corpuscular Hemoglobin Concent 34.4 32.0-36.0 g/dL Red Cell Distribution Width 14.1 11.8-14.3 % Platelet Count 148 140-450 10^3/uL Mean Platelet Volume 7.8 6.9-10.8 fL Neutrophils (%) (Auto) 62.0 37.0-80.0 % Lymphocytes (%) (Auto) 20.3 10.0-50.0 % Monocytes (%) (Auto) 10.5 0.0-12.0 % Eosinophils (%) (Auto) 5.7 0.0-7.0 % Basophils (%) (Auto) 1.5 0.0-2.0 % Neutrophils # (Auto) 4.4 1.6-8.6 10 ^3/uL Lymphocytes # (Auto) 1.4 0.4-5.4 10 ^3/uL Monocytes # (Auto) 0.7 0-1.3 10 ^3/uL Eosinophils # (Auto) 0.4 0-0.8 10 ^3/uL Basophils # (Auto) 0.1 0-0.2 10 ^3/uL Nucleated Red Blood Cells 0.1 % Sodium Level 138 136-145 mmol/L Potassium Level 4.4 3.5-5.1 mmol/L Chloride Level 104 98-107 mmol/L Carbon Dioxide Level 22 20-31 mmol/L Anion Gap 12 5-15 Blood Urea Nitrogen 20 9-23 mg/dL Creatinine 1.03 0.700-1.30 mg/dL Glomerular Filtration Rate Calc 71 >90 mL/min BUN/Creatinine Ratio 19.4 10.0-20.0 Serum Glucose 126 H 74-106 mg/dL Calcium Level 10.5 H 8.7-10.4 mg/dL Troponin I High Sensitivity 3 L </=54 ng/L Current Medications Medications (Trade) Dose Ordered [facility] Route Start Time Stop Time Status Last Admin Morphine Sulfate 4 mg ONCE ONCE IV 10/18/24 11:15 10/18/24 11:16 DC 10/18/24 12:22 Ondansetron HCl (Zofran) 4 mg ONCE ONCE IV 10/18/24 11:15 10/18/24 11:16 DC 10/18/24 12:22 Etomidate 20 mg ONCE ONCE IV 10/18/24 15:30 10/18/24 15:31 DC 10/18/24 15:01 Rocuronium [place] 100 mg ONCE ONCE IV 10/18/24 15:30 10/18/24 15:31 DC 10/18/24 15:01 Sodium Bicarbonate 50 ml ONCE ONCE IV 10/18/24 15:30 10/18/24 15:31 DC 10/18/24 15:30 Dopamine HCl/ Dextrose 250 ml @ 12.788 mls/ hr [id number] IV 10/18/24 15:30 10/18/24 15:30 Patient alert. Blood pressure elevated. Saturation pristine. Vitals stable. Abdomen is soft nontender. Blood pressure equal. Strong risk factor. Reviewed his previous visit. On re-evaluation abdomen is soft nontender. No sign of any distress. Possible aortic aneurysm stent problem. CT scan of the abdomen reviewed shows contained aortic aneurysm leak. CT of the head reviewed does not show any acute process. Continue to monitor. Spoke with the [facility] physician. He did get a examination done by a surgeon at [facility] one week ago. He did have a leaking aneurysm which needed further studies. Patient is aware of it. Patient did state that he has another appointment for further evaluation of the aneurysm. [facility] did state that it is his aneurysm has been leaking for some time. 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 Complex surgery as per [facility] physician. Continue to monitor. Spoke with family. Family did state that he has been having leaking aortic aneurysm for many months. They were waiting for further studies to operate. The aneurysm still is contained. Unable to actually tell without previous scan. Patient has been stable throughout the ER. He did get intubated to protect his airway. Blood pressure has been stable throughout. Placed on dopamine for renal vasculature. [place] [id number] Ph: [phone] DIAGNOSTIC IMAGING Diagnostic Imaging Report : [id number] Signed PATIENT: JOÃO OLEARY ACCT: [id number] UNIT: [id number] : 1940 LOC: ER ROOM / BED: / AGE / SEX: 83 / M ADM STATUS: REG ER SERVICE 1101 ORDERING PHYSICIAN: DOUGLAS WOOD MD PROCEDURE(s): CXRP - CHEST PORTABLE REASON: sob ORDER NUMBER(s): [id number], ACCESSION NUMBER(s): [id number] CHEST RADIOGRAPH Indication: sob Technique: Single frontal view of the chest was obtained COMPARISON: None FINDINGS: Lines and Tubes: Median sternotomy Lungs: Clear Pleura: No effusion. No pneumothorax. Cardiomediastinal contours: Unremarkable Bones: Unremarkable IMPRESSION: No acute disease. ATED BY: TU ALBA MD DICTATED DATE/TIME: 10/18/24 113 SIGNED BY: TU ALBA MD SIGNED DATE/TIME: 10/18/24 1139 CC: Time of 1ST Reevaluation: 11:28 Reevaluation 1ST: Unchanged Patient Education/Counseling: Diagnosis, Treatment, Prognosis Family Education/Counseling: No Family Present Additional Information The following tests were ordered, and results were reviewed by me: TROP, CBC, XY CHEST, BMP, EKG Additional Information was gathered from interviewing the following independent historians: EMS I reviewed and agreed with the following test results read by other providers: XY CHEST I discussed treatment and results with medical personnel and: Patient Comprehensive systems review obtained and negative except for what is stated in the HPI. Departure 1 Departure Time of Disposition: 11:17 Impression: Primary Impression: Ruptured aortic aneurysm Qualified Codes: I71.30 - Abdominal aortic aneurysm, ruptured, unspecified Additional Impressions: Intractable abdominal pain Hypertensive urgency Disposition: 02 SHORT TERM HOSPITAL Admit to: Med Surg Condition: Guarded Critical Care Note Critical Care Time?: Yes (90 min-critical care time only) Stability Stability form required: No Heart Score Heart Score: Heart Score Response (Comments) Value History Slightly Suspicious 0 EKG Normal 0 Age >65 2 Risk Factors >3 or Hx ASHD 2 Troponin Normal limit 0 Total 4 I personally scribed for DOUGLAS WOOD MD ([email or web address]) on 10/18/24 at 11:14. Electronically submitted by Norma Valle ([email or web address]). I personally scribed for DOUGLAS WOOD MD ([email or web address]) on 10/18/24 at 11:19. Electronically submitted by Norma Valle ([email or web address]). I personally scribed for DOUGLAS WOOD MD ([email or web address]) on 10/18/24 at 12:20. Electronically submitted by Norma Valle ([email or web address]). DOUGLAS WOOD MD Oct 18, 2024 11:14
--- NOTE | 2024-10-18 11:42 | DVH ---
CHEST RADIOGRAPH Indication: sob Technique: Single frontal view of the chest was obtained COMPARISON: None FINDINGS: Lines and Tubes: Median sternotomy Lungs: Clear Pleura: No effusion. No pneumothorax. Cardiomediastinal contours: Unremarkable Bones: Unremarkable IMPRESSION: No acute disease.
[2024-10-18 11:48] LABS: Basophils # (auto) 0.1 10 ^3/uL (0-0.2); Basophils % (auto) 1.5 % (0.0-2.0); Eosinophils # (auto) 0.4 10 ^3/uL (0-0.8); Eosinophils % (auto) 5.7 % (0.0-7.0); Hematocrit 42.1 % (41.0-53.0); Hemoglobin 14.5 g/dL (13.5-17.5); Lymphocytes # (auto) 1.4 10 ^3/uL (0.4-5.4); Lymphocytes % (auto) 20.3 % (10.0-50.0); Mean Corpuscular Hemoglobin 31.9 pg (28.0-32.0); Mean Corpuscular Hgb Conc. 34.4 g/dL (32.0-36.0); Mean Corpuscular Volume 92.8 fL (80.0-100.0); Monocytes # (auto) 0.7 10 ^3/uL (0-1.3); Monocytes % (auto) 10.5 % (0.0-12.0); Neutrophils # (auto) 4.4 10 ^3/uL (1.6-8.6); Nucleated Red Blood Cells % 0.1 %; Platelet Count (auto) 148 10^3/uL (140-450); Red Blood Cells 4.53 10^6/uL (4.5-5.90); Red Cell Distribution Width 14.1 % (11.8-14.3); White Blood Cell 7.1 10^3/uL (4.4-10.8)
[2024-10-18 11:53] LABS: Chloride 104 mmol/L (98-107); Potassium 4.4 mmol/L (3.5-5.1); Sodium 138 mmol/L (136-145)
[2024-10-18 11:54] LABS: Anion Gap 12 (5-15); Carbon Dioxide 22 mmol/L (20-31)
[2024-10-18 11:59] LABS: BUN/Creatinine Ratio 19.4 (10.0-20.0); Blood Urea Nitrogen 20 mg/dL (9-23)
[2024-10-18 12:00] LABS: Calcium 10.5 mg/dL (8.7-10.4); Glucose 126 mg/dL (74-106)
[2024-10-18 12:11] LABS: Urine Bacteria None Seen /hpf (None Seen)
[2024-10-18 12:21] LABS: Urine Blood 1+ /uL (Negative); Urine Clarity Clear (Clear); Urine Color Yellow (Yellow); Urine Protein, UAD 2+ (Negative); Urine Specific Gravity 1.019 (1.001-1.035); Urine Squamous Epithelial Cell None Seen /hpf (<5); Urine Urobilinogen Normal (Negative); Urine WBC 1 /HPF (0-3); Urine pH 7.5 (5.0-9.0)
[2024-10-18] MEDS: ONDANSETRON HCL 4 MG/2 ML VIAL IV ONE (12:22)
[2024-10-18] MEDS: MORPHINE SULFATE 4 MG/ML SYR/VIAL IV ONE (12:22)
[2024-10-18] MEDS: SODIUM BICARB 8.4% 50Meq/50ml SYR INJ ONE (15:00)
[2024-10-18] MEDS: ROCURONIUM 10MG/ML 10ML VIAL IV ONE ×2 (15:01→15:24)
[2024-10-18] MEDS: ETOMIDATE (2MG/ML) 20ML VIAL IV ONE ×2 (15:01→15:24)
[2024-10-18] MEDS: MIDAZOLAM DRIP 50 mg/50mL 50 ML IV ONE (15:02)
[2024-10-18 15:04] VITALS: BP 38/17; PULSE 75; RESP 18; O2SAT 100
[2024-10-18] MEDS ORDERED: CLINDAMYCIN 600MG IV 50 ML IV ONE (15:15)
[2024-10-18] MEDS ORDERED: cefTRIAXone 1GM/50ML D5W 50 ML IV ONE (15:15)
[2024-10-18] MEDS: MIDAZOLAM DRIP 50 mg/50mL 50 ML IV SCH (15:24)
[2024-10-18] MEDS: NOREPINEPHRINE 8 MG/250ML KIT 250 ML IV SCH (15:25)
[2024-10-18] MEDS: DOPamine 1600MCG/ML D5W 250 ML IV SCH (15:30)
[2024-10-18] MEDS: SODIUM BICARB 8.4% 50Meq/50ml SYR Vial IV ONE (15:30)
[2024-10-18] MEDS: NOREPINEPHRINE 8 MG/250ML KIT 250 ML IV ONE (15:32)
--- NOTE | 2024-10-18 15:33 | DVH ---
INDICATION: Post intubation TECHNIQUE: Frontal view of the chest. COMPARISON: XY CHEST PORTABLE on DOS: 10/18/24 FINDINGS: Endotracheal tube 3.7 cm in the angelina. The heart and mediastinal contours are grossly unremarkable. There is no evidence of pleural disease. The lungs are clear. The bony structures of the chest ar e intact without fracture. IMPRESSION: 1. Endotracheal tube 3.7 cm in the angelina
[2024-10-18] MEDS: DOPamine 1600MCG/ML D5W 250 ML IV ONE (15:34)
[2024-10-18] MEDS: IOHEXOL 350 MG/ML 100ML IJ ONE (15:37)
[2024-10-18 16:03] LABS: Lactic Acid w/Reflex 9.3 mmol/L (0.4-2.0)
--- NOTE | 2024-10-18 16:43 | DVH ---
EXAM: CT HEAD WITHOUT CONTRAST; DATE: 10/18/2024 03:35 PM HISTORY: altered COMPARISON: None TECHNIQUE: Axial images were obtained and reformatted in coronal and sagittal planes. All CT scans at this medical facility are performed using dose modulation techniques as appropriate t o a performed exam including the following: Automated exposure control was utilized; adjustment of th e MA and/or KV according to patient size; and use of iterative reconstruction technique. CT Dose: CTDI volume is 61 mGy. Dose-length product is 1869 mGy*cm FINDINGS: Supratentorial Region: No evidence for large acute territorial ischemia. No intracranial hemorrhage is noted. Posterior Fossa: No acute abnormality. Brainstem: Unremarkable. Sellar/Suprasellar Region: Unremarkable. Ventricles, Cisterns, Sulci: Age-appropriate. Orbits: Unremarkable. Paranasal Sinuses: Unremarkable. Mastoid Air Cells: Unremarkable. Vasculature: Unremarkable. Bones/Soft Tissues: No acute abnormality. Other: None. IMPRESSION: 1. No CT evidence of acute intracranial abnormality.
[2024-10-18 16:45] VITALS: BP 98/59; PULSE 130; RESP 18; O2SAT 100
[2024-10-18 16:58] VITALS: BP 38/17; PULSE 75; RESP 18; O2SAT 100
--- NOTE | 2024-10-18 17:02 | DVH ---
Procedure: CT CT CHEST/AB/PL W CON- IV ONLY 10/18/2024 03:35 PM Indication: colitis Comparison Study: None Technique: Axial images were obtained and reformatted in coronal and sagittal planes. All CT scans at this medical facility are performed using dose modulation techniques as appropriate to a performed e xam including the following: Automated exposure control was utilized; adjustment of the MA and/or KV according to patient size; and use of iterative reconstruction technique. CT Dose: CTDI volume is 8.6 1 mGy. Dose-length product is 1869.42 mGy*cm FINDINGS: Lower neck: Endotracheal and NG tubes are noted. The ETT above the level angelina. Enteric tube exten ds to the stomach. Thyroid is diminutive. Pulmonary: Mild bibasilar subsegmental atelectasis. No pleural effusion or pneumothorax. Cardiomediastinal: The heart is normal in size. No pericardial effusion. Median sternotomy wires and mediastinal vascular clips are seen. Coronary artery calcification noted. Hepatobiliary: Unremarkable. Spleen: Unremarkable. Pancreas: Unremarkable. Adrenal Glands: Unremarkable. tract: The kidneys are normal in size bilaterally without hydronephrosis or nephrolithiasis. Multi ple small bilateral renal cysts are seen. Bladder is decompressed with a Barahona catheter and cannot be adequately assessed. GI tract: The stomach is grossly normal in appearance. No evidence of small bowel obstruction. The la rge bowel is unremarkable. The appendix is not visualized. No inflammatory change is noted in the rig ht lower quadrant. Lymphatics: No mesenteric, retroperitoneal or periportal lymphadenopathy. Vasculature: Redemonstration of large infrarenal abdominal aorta aneurysm with maximum AP diameter of 8.9 cm and transverse diameter 8.7 cm with evidence of large active endoleak. In today's exam , the re is interval development of aneurysm rupture a large retroperitoneal hemorrhage the bilateral renal arteries are opacified. Atherosclerotic calcification of the origin of the bilateral renal arteries noted. There is mild symmetric enhancement of the bilateral kidneys. The superior mesenteric and ce liac trunk are opacified. Inferior mesenteric artery is not identified. Bifurcated endovascular stent noted. 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 The bilateral exte rnal iliac and common iliac arteries are opacified. Pelvic Organs: Unremarkable Bones/soft tissues: No acute abnor to mality. Other: None. IMPRESSION: 1. Interval infrarenal abdominal aortic aneurysm rupture with large amount of retroperitoneal hemorrh age. Recommend immediate vascular surgery consultation. The bilateral renal arteries are opacified a nd bilateral symmetric nephrogram noted. noted Findings discussed with DOUGLAS WOOD at 10/18/2024 04:49 PM, and acknowledged receipt and under standing of the findings. ..
[2024-10-18] MEDS ORDERED: EPINEPHrine HCL 250 ML IV ONE (17:04)
[2024-10-18] MEDS ORDERED: EPINEPHrine HCL 1 MG/10 ML SYRG ONE (17:04)
[2024-10-18] MEDS ORDERED: PHENYLEPHRINE IV 250 ML IV ONE (17:10)
[2024-10-18] MEDS: EPINEPHrine HCL 250 ML IV SCH (17:10)
[2024-10-18 17:11] VITALS: PULSE 131; RESP 18; TEMP 93.6
[2024-10-18] MEDS: PHENYLEPHRINE IV 250 ML IV SCH (17:20)
[2024-10-18 17:40] VITALS: BP 84/51
--- NOTE | 2024-10-18 20:04 | ECG ---
[facility] Test Date: 2024-10-18 Test Time: 10:58:51 Pat Name: JOÃO OLEARY Department: ED Room: Gender: M [employer] Installer: : 1940 Requested By: DOUGLAS WOOD Order Number: [id number] Reading MD: Wesley Metzger Measurements Intervals [place] Rate: 76 P: 90 DC: 203 QRS: 219 QRSD: 96 T: 83 QT: 427 QTc: 481 Interpretive Statements Sinus rhythm S1,S2,S3 pattern Nonspecific T abnrm, anterolateral leads Borderline prolonged QT interval Electronically Signed On 10-19-2024 13:15:35 PDT by Wesley Metzger Please click the below link to view image of tracing.
== END 2024-10-18 18:00 | disposition short-term general hospital (02) ==
LOC: EDBD 10:52 → ER 10:52
DX: I71.33 Infrarenal abdominal aortic aneurysm, ruptured (principal); I16.0 Hypertensive urgency; I10 Essential (primary) hypertension; E03.9 Hypothyroidism, unspecified; R94.31 Abnormal electrocardiogram [ECG] [EKG]; Z79.01 Long term (current) use of anticoagulants; Z79.02 Long term (current) use of antithrombotics/antiplatelets; Z79.899 Other long term (current) drug therapy; Z95.1 Presence of aortocoronary bypass graft
CPT/HCPCS: 31500; 36415; 36430; 36556; 36600; 70450; 71045; 71260; 74177; 80048; 81001; 82805; 83605; 84484; 85025; 86850; 86900; 86901; 86920; 87040; 87070; 87077; 87186; 87205; 93005; 96374; 96375; 99291; 99292; J0171; J1265; J2250; J2270; J2371; J2405; P9016; Q9967; 96365; 96367; 96368